=== PATIENT | female | born 1965 | race Caucasian/White ===

== ENCOUNTER 2016-04-17 13:04 | Inpatient (IN) | payer OTHER ==
--- NOTE | ~2016-04-17 | HP ---
History And Physical [id number] [place]. [address] NAME: JODI JAMESON : 69 STATUS : REG REF PAT#: [id number] AGE: 50 ADM/REG DATE : 04/17/16 MR#: [id number] REPORT SERV DATE: 04/18/16 DICTATED BY: FELECIA VARELA DATE: 04/17/16 REPORT STATUS : Draft TRANSCRIBED BY: MODL DATE: 04/17/16 DATE OF ADMISSION: 04/17/2016 POINT OF ENTRY: Direct admission from Short-Stay Unit. PRIMARY ONCOLOGIST: Braulio Rene M.D. CHIEF COMPLAINT: Hypoxemia, shortness of breath. HISTORY OF PRESENT ILLNESS: Ms Jameson is a 50-year-old female with an unfortunate history of metastatic breast cancer with associated malignant pleural effusion status post left-sided PleurX catheter placement, who underwent PleurX catheter investigation and ultimately removal today as an outpatient. Unfortunately postprocedurally she was noted to be hypoxemic and short of breath and the Hospitalist Service was asked to admit the patient. The patient has a history of malignant pleural effusion, has received multiple left-sided thoracentesis, she approximate 6. She ultimately ended up having a PleurX catheter placed about two weeks ago and for some time was getting a 400 to 600 mL of fluid removal at a time. However, home health has noted that it has stopped draining and therefore, she underwent PleurX catheter investigation today to see if it was either malpositioned or clogged. As best I can see from the records from [facility] as well as discussion with nursing and Dr. Murphy of Oncology it appears that the PleurX catheter was in good position, but that the remaining pleural effusions were small in nature and therefore decision was made to remove the PleurX catheter. Postprocedure, she was noted to be hypoxemic on room air with saturations as low as the mid 80s and there she was placed on 2 L by nasal cannula and admitted to the Hospitalist Service. The patient states that at home she has been in a fair amount of pain and has been unable to use her inhaler because she is unable to take large deep breaths. She also has some coughing as well as sensation of chest congestion, but has been unable to clear up any sputum as she again is unable secondary to pain to produce any forceful coughs. The patient does state that she at home has noted progressive worsening shortness of breath, as well as dyspnea on exertion, and even now at the time of my examination states that talking even while on oxygen has started to leave her winded. They also state she has had some low-grade fevers at home as well as recently diagnosed with an infection of the PleurX catheter with some erythema and some drainage around the insertion site and was recently placed on a course of oral ciprofloxacin by Dr. Rene's office. She also does endorse some wheezing from her history of asthma, but again has been unable to adequately use her inhaler recently secondary to pain. Initial evaluation shows multiple chest x-rays from Interventional Radiology Suite that show bilateral pleural effusions as well as diffuse interstitial thickening concerning for edema versus possible metastatic spread. She did have a CT of the chest that was performed that showed good position of the catheter with bilateral small to moderate pleural effusions as well as a small area of loculated pleural effusion on the left side as well as multiple areas of segmental and subsegmental atelectasis as well as diffuse coarse interstitial History And Physical [address] [address] NAME: JODI JAMESON : 69 STATUS : REG REF PAT#: [id number] AGE: 50 ADM/REG DATE : 04/17/16 MR#: [id number] REPORT SERV DATE: 04/18/16 DICTATED BY: FELECIA VARELA DATE: 04/17/16 REPORT STATUS : Draft TRANSCRIBED BY: MODMomo DATE: 04/17/16 markings consistent for pneumonia versus metastatic spread. REVIEW OF SYSTEMS: Comprehensive review of systems otherwise negative unless listed in history of present illness. PREVIOUS MEDICAL HISTORY: 1. Metastatic breast cancer with known metastases to the bone. 2. Malignant pleural effusion status post PleurX catheter insertion, now removal. 3. Gastroesophageal reflux disease. 4. Hpi-vuvrprf-ejbtvybwc diabetes mellitus type 2. 5. Obstructive sleep apnea, on CPAP therapy. 6. Asthma. SURGICAL HISTORY: 1. Bilateral mastectomy. 2. Abdominal hysterectomy and bilateral salpingo-oophorectomy. 3. x2. 4. Breast reconstruction. ALLERGIES: NO KNOWN DRUG ALLERGIES. HOME MEDICATIONS: 1. Cetirizine 10 mg daily. 2. Ciprofloxacin 500 mg b.i.d. 3. Xgeva every four weeks. 4. Pepcid 40 mg q.h.s. 5. Prozac 10 mg daily. 6. Faslodex every 30 days. 7. [place] 5/325 mg one to two tabs q.4 hours p.r.n. 8. Melatonin 5 mg q.h.s. 9. Metformin 500 mg b.i.d. 10.Dulera two puff inhalation daily. 11.OxyContin 10 mg q.h.s. 12.Ibrance 125 mg daily. 13.Protonix 40 mg daily. 14.Simvastatin 10 mg daily. 15.Every weekly allergy injection. SOCIAL HISTORY: She denies any tobacco, alcohol, or illicits. She is a lifelong nonsmoker. FAMILY MEDICAL HISTORY: Mother with history of breast cancer. Extended family members also with history of breast cancer. LABS AND IMAGIN. CT of the chest shows good position of the PleurX catheter in the left pleural space and is surrounded by pleural fluid only a small amount of injected contrast adjacent to History And Physical [address] [address] NAME: JODI JAMESON : 69 STATUS : REG REF PAT#: [id number] AGE: 50 ADM/REG DATE : 04/17/16 MR#: [id number] REPORT SERV DATE: 04/18/16 DICTATED BY: FELECIA VARELA DATE: 04/17/16 REPORT STATUS : Draft TRANSCRIBED BY: MODMomo DATE: 04/17/16 the PleurX catheter at the medial posterior lung pleural space, small to moderate bilateral pleural effusions, small loculated pleural effusion along the left major fissure, subsegmental atelectasis right upper and middle lobe, left upper lobe and multi segmental atelectasis both lower lobes, diffusely coarse interstitial markings suggestive of interstitial spread of malignancy versus interstitial pulmonary edema pattern. 2. Postprocedural chest x-ray per my review does not appear to show any postprocedural pneumothorax. Again does show bilateral pleural effusions as well as coarse interstitial markings throughout. 3. Labs are pending at the time of my dictation. PHYSICAL EXAMINATION: VITAL SIGNS: Temperature is 98.2 degrees Fahrenheit, pulse is 83, respirations 25, saturating 97% on 2 L of cannula, and blood pressure 140/65. GENERAL: The patient is awake and alert, in no acute distress. Resting comfortably in bed. She is a well-developed, well-nourished, female. HEENT: Atraumatic and normocephalic. Moist mucous membranes. Pupils are equal, round, reactive to light and accommodation. Extraocular eye movements are intact. No scleral icterus. NECK: No jugular venous distention. No carotid bruits. CARDIAC: Regular rate and rhythm. No murmurs or gallops. Normal S1, normal S2. LUNGS: She is on oxygen, but in no respiratory distress. Does have decreased breath sounds in the bases, left greater than right. She also has inspiratory crackles bilateral bases, left greater than right, as well as very mild inspiratory wheezes and rales in all lung taylor. ABDOMEN: Soft, nontender, and nondistended. Good bowel sounds. No rebound, guarding, or rigidity. EXTREMITIES: Warm and perfused. No cyanosis, clubbing, or edema. SKIN: Warm and dry. PSYCH: Affect appropriate. NEURO: Alert and oriented x3. Cranial nerves 2 through 12 grossly intact. Speech is normal. Gait not assessed. ASSESSMENT AND PLAN: Ms Jameson is a 50-year-old female with a history of metastatic breast cancer with known history of malignant pleural effusions, who is being admitted to the Hospitalist Service for hypoxemia. PROBLEM LIST: 1. Hypoxemia, likely multifactorial. 2. Segmental and subsegmental atelectasis. 3. Bilateral pleural effusions. 4. Coarse interstitial markings concerning for edema versus metastatic spread. 5. History of asthma. 6. History of metastatic breast cancer. PLAN: 1. Hypoxemia. The patient's hypoxemia is likely multifactorial in etiology. I suspect a History And Physical [address] [address] NAME: JODI JAMESON : 69 STATUS : REG REF PAT#: [id number] AGE: 50 ADM/REG DATE : 04/17/16 MR#: [id number] REPORT SERV DATE: 04/18/16 DICTATED BY: FELECIA VARELA DATE: 04/17/16 REPORT STATUS : Draft TRANSCRIBED BY: DENEEN DATE: 04/17/16 fair contribution from obvious areas of atelectasis secondary to splinting from pain as well as contribution from her small to moderate sized pleural effusions. I am concerned about the coarse interstitial markings concerning for possible pulmonary edema versus metastatic spread. She does not have other evidence of volume overload on examination, but we will check a BNP as well as I will try one time low-dose Lasix. Other contributors may be also from her asthma as well as known history of obstructive sleep apnea. We will place the patient on DuoNebs with EzPAP to address her atelectasis, place the patient on pulmonary toilet with incentive spirometry as well as flutter valve, as well as a one time dose of Lasix as well as address the patient's pain control in an effort to allow her to take deep breaths as much as possible. Should we not able to wean the patient from oxygen we will need to consult Case Management and [facility] in the morning for arrangement of home oxygen. Of note, the patient also does have a history of pneumonitis in the past from everolimus; however, the patient states she is no longer on that. I will defer to Oncology whether they think that this may be also contributing to her hypoxemia. 2. Malignant pleural effusion status post PleurX catheter insertion, now removal. This appears to be small to moderate in size based on imaging. 3. History of metastatic breast cancer. Defer to Oncology. 4. Asthma. We will place the patient on DuoNeb as well as Brovana and Pulmicort as well as address the patient's pain in an effort to get her to utilize the nebulized inhaled treatments. We will hold off on any steroids at this time as I do not appreciate a considerable amount of wheezing. 5. Buf-guatjwm-mzcyfutrp diabetes mellitus type 2. Holding metformin. Place her on a level 1 insulin sliding scale. 6. Deep venous thrombosis prophylaxis. Lovenox subcu. CODE STATUS: The patient wished to be full code. JCB/MODL Felecia Varela MD / [id number] CC: Berto Tuttle M.D.
--- NOTE | ~2016-04-17 | DS ---
Discharge Summary [facility] [address] [place]. [address] NAME: JODI JAMESON : 69 STATUS : DIS Emilia PAT#: [id number] AGE: 50 ADM/REG DATE : 04/17/16 MR#: [id number] REPORT SERV DATE: 04/20/16 DICTATED BY: HOLLIS LEDEZMA DATE: 04/19/16 REPORT STATUS : Draft TRANSCRIBED BY: MODL DATE: 04/19/16 ADMISSION DATE: 04/17/2016 DISCHARGE DATE: 04/19/2016 CONSULTANTS: Dr. Concepción Murphy, medical oncology. DISCHARGE DIAGNOSES: 1. Acute hypoxic respiratory failure. 2. 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 3. Metastatic breast cancer known to involve bone and pleura. 4. Gastroesophageal reflux disease. 5. Obstructive sleep apnea, using bedtime CPAP. 6. History of medication induced diabetes mellitus type 2. 7. History of asthma. 8. Anemia of chronic disease. 9. Mild leukopenia related to chemotherapy. HISTORY: This patient has been fighting breast cancer for nearly 20 years. She recently was found to have malignant pleural effusion, had multiple thoracentesis ended up having a PleurX catheter placed approximately 2 weeks prior to coming into the hospital. Home Health was doing drainage procedure as was the patient and . It got to where there was little or no drainage, so she came to the hospital for evaluation for malpositioning of the tube or removal of it. In the radiology suite on 04/17/2016, the CT scan showed satisfactory appearance of the PleurX catheter in the left pleural space. There was not much pleural fluid in the region around. There was [id number] bilateral pleural effusions, subsegmental atelectasis, right upper and middle lobe, left upper lobe and left lower lobe. There was a diffuse coarse interstitial markings, suggesting either pulmonary spread of malignancy through the interstitium or pulmonary edema. There was also patchy osteoblastic metastatic disease throughout the bony thorax, no lytic destructive lesions, and no pathologic fractures. Enlarged left retrocrural lymph node posterior to the descending thoracic aorta within the posterior mediastinum but stable since 01/22/2016. After the chest tube was removed, the patient was noted to be persistently hypoxic so she was referred to our team for inpatient care. The patient admitted that she has had gradually worsening dyspnea for some time, so it is suspected that she has been gradually developing this inflammatory reaction in the lung. Whether it is a pneumonitis or lymphangitis spread at this time, it is not completely clear. Her procalcitonin here was normal at 0.7. She did not have any elevated white count but she is on chemotherapy, no distinct infiltrates. Prior to the procalcitonin, we did initiate cefepime and vancomycin for the patient just in case it was an infectious process. Dr. Concepción Murphy reviewed the studies, felt it was not likely an acute infectious process. I felt the patient could go home and be on steroids for possible pneumonitis inflammation. She was started on 60 mg daily with plan for followup with Dr. Rene in the office on Wednesday of this week and if no better, then to change to IV chemotherapy. Discharge Summary [address] [address] NAME: JODI JAMESON : 69 STATUS : DIS Emilia PAT#: [id number] AGE: 50 ADM/REG DATE : 04/17/16 MR#: [id number] REPORT SERV DATE: 04/20/16 DICTATED BY: HOLLIS LEDEZMA DATE: 04/19/16 REPORT STATUS : Draft TRANSCRIBED BY: DENEEN DATE: 04/19/16 Prior to discharge room air sat at rest 91% but with walking, it dropped to 81%. With 2 L, it recovered to 95%. So the patient will be on 2 L nasal cannula at home and portable with case management to follow this up. She states in the past when she took some medications, she had diabetes as a side effect. So, we are going to put her on a sliding scale of NovoLog with followup with her PCP, Dr. Ariel Guardado. DISCHARGE MEDICATIONS: Include; Pepcid 40 mg daily, Prozac 10 mg daily, Zyrtec 10 mg daily, Protonix 40 mg daily, Florastor rzwh-grs-kbkrncg b.i.d. for two weeks because of the antibiotic, she has been on recently, Zocor 10 mg every bedtime, OxyContin 10 mg at bedtime which is a chronic medicine, [place] 06/3250 one to two every four hours p.r.n. breakthrough pain, which is a chronic medicine for her, Tylenol 650 q. 6 hours p.r.n. mild pain, metformin 500 mg b.i.d. with supper, melatonin 5 mg at bedtime, prednisone 20 mg 3 tablets every day, NovoLog sliding scale level 2 a.c. t.i.d. Dulera 100/5 two puffs daily. We are asking her oncologist to comment on whether she is to stay on her ibrance 125 mg as well as her Faslodex 125 mg given injectable every 30 days at her oncologist's office, as well as Xgeva 120 mg subcu every four weeks. I spent 41 minutes today with the patient and her and with the nursing staff and talking with Dr. Concepción Murphy. CHIRAG/DENEEN Hollis Ledezma M.D. / [id number] CC: Hollis Ledezma M.D.
[~2016-04-17 13:04] MED LIST: ALLERGY INJECTION; ARIMIDEX1 PO; ATV.5 PO; AUG875 PO; C5 PO; COMP10B PO; COUMADIN6 MG PO; DULERA 100 MCG/13 GM INH; EFFEXXR37 PO; FASLODEX IM; GLUCOPHXR7 PO; GLUCPH PO; IBRANCE125; LORTAB 5 PO; MELATONIN5 M1 PO; NEXIUM40 PO; NORCO1 TA1 PO; OXYCON10 PO; PEPCID40 MG PO; PERCOCET1 TA2 PO; PRILOSEC10 MG PO; PROTONIX PO; PROZ10 PO; ULTRAM ER100 MG PO; XGEVA120 MG/1.7 SC; XODOL1 TA2 PO; ZOCOR10 PO; ZYRTEC ALLGY10 MG PO
[2016-04-17] MEDS ORDERED: CIP5 PO (13:42)
[2016-04-17 23:20] LABS: BASOPHILS 2.3 %; BASOPHILS ABSOLUTE 0.08 10/3/uL (0.0-0.16); EOSINOPHILS 1.4 %; EOSINOPHILS ABSOLUTE 0.05 10/3/uL (0.0-0.53); HEMATOCRIT 32.3 % (36.0-48.0); HEMOGLOBIN 10.9 g/dL (12.0-16.0); IMMATURE GRANULOCYTES 0.6 %; IMMATURE GRANULOCYTES ABSOLUTE 0.02 10/3/uL (0.0-0.11); LYMPHOCYTES 19.4 %; LYMPHOCYTES ABSOLUTE 0.67 10/3/uL (0.67-4.30); MEAN CORPUS HGB CONC 33.7 g/dL (32.0-36.0); MONOCYTES 4.9 %; MONOCYTES ABSOLUTE 0.17 10/3/uL (0.21-1.20); NEUTROPHILS 71.4 %; NEUTROPHILS ABSOLUTE 2.47 10/3/uL (2.02-8.40)
[2016-04-17 23:24] LABS: MANUAL DIFF NO %; MEAN CORPUSCULAR HEMOGLOB 29.2 pg (26.0-34.0); MEAN CORPUSCULAR VOLUME 86.6 fL (80-100); PLATELET COUNT 423 10/3/uL (150-400); RBC DISTRIBUTION WIDTH 20.5 % (12.0-16.0); RED CELL COUNT 3.73 10/6/uL (4.0-5.6); WHITE BLOOD CELLS 3.5 10/3/uL (4.5-10.5)
[2016-04-17 23:33] LABS: A/G RATIO 0.6 (0.7-1.9); ALBUMIN 2.4 G/DL (3.5-5.0); ALKALINE PHOSPHATASE 102 U/L (45-117); BUN (BLOOD UREA NITROGEN) 12 MG/DL (6-23); CALCIUM, SERUM 8.5 MG/DL (8.5-10.4); CHLORIDE, SERUM 104 MMOL/L (96-112); CO2 (CARBON DIOXIDE) 26 MMOL/L (24-34); CREATININE 0.64 MG/DL (0.55-1.02); GFR AFRICAN AMERICAN 122 ML/MIN (>=60); GFR NON AFRICAN AMERICAN 106 ML/MIN (>=60); GLOBULIN 4.1 G/DL (2.5-4.1); POTASSIUM, SERUM 4.1 MMOL/L (3.5-5.3); SGOT(AST) 21 U/L (5-40); SGPT(ALT) 14 U/L (5-65); SODIUM, SERUM 139 MMOL/L (135-148); TOTAL BILIRUBIN 0.3 MG/DL (0-1.2); TOTAL PROTEIN 6.5 G/DL (6.0-8.5); TROPONIN I <0.02 NG/ML (<0.05)
[2016-04-17 23:34] LABS: GLUCOSE, SERUM 107 MG/DL (60-99)
[2016-04-18 11:09] LABS: BASOPHILS 1.7 %; BASOPHILS ABSOLUTE 0.05 10/3/uL (0.0-0.16); EOSINOPHILS ABSOLUTE 0.03 10/3/uL (0.0-0.53); HEMOGLOBIN 10.4 g/dL (12.0-16.0); IMMATURE GRANULOCYTES 0.7 %; IMMATURE GRANULOCYTES ABSOLUTE 0.02 10/3/uL (0.0-0.11); LYMPHOCYTES 22.9 %; LYMPHOCYTES ABSOLUTE 0.67 10/3/uL (0.67-4.30); MANUAL DIFF NO %; MEAN CORPUS HGB CONC 33.5 g/dL (32.0-36.0); MEAN CORPUSCULAR HEMOGLOB 28.8 pg (26.0-34.0); MEAN CORPUSCULAR VOLUME 85.9 fL (80-100); MEAN PLATELET VOLUME 7.8 fL (9.2-13.0); MONOCYTES 5.8 %; MONOCYTES ABSOLUTE 0.17 10/3/uL (0.21-1.20); NEUTROPHILS 67.9 %; NEUTROPHILS ABSOLUTE 1.98 10/3/uL (2.02-8.40); PLATELET COUNT 363 10/3/uL (150-400); RBC DISTRIBUTION WIDTH 20.5 % (12.0-16.0); RED CELL COUNT 3.61 10/6/uL (4.0-5.6); WHITE BLOOD CELLS 2.9 10/3/uL (4.5-10.5)
[2016-04-18 11:22] LABS: BUN (BLOOD UREA NITROGEN) 13 MG/DL (6-23); CALCIUM, SERUM 8.4 MG/DL (8.5-10.4); CHLORIDE, SERUM 103 MMOL/L (96-112); CO2 (CARBON DIOXIDE) 28 MMOL/L (24-34); CREATININE 0.86 MG/DL (0.55-1.02); GFR AFRICAN AMERICAN 93 ML/MIN (>=60); GFR NON AFRICAN AMERICAN 80 ML/MIN (>=60); GLUCOSE, SERUM 123 MG/DL (60-99); POTASSIUM, SERUM 3.5 MMOL/L (3.5-5.3); SODIUM, SERUM 140 MMOL/L (135-148)
[2016-04-18 11:47] LABS: PROCALCITONIN 0.07 ng/mL (<0.5)
[2016-04-18 13:38] LABS: ALLENS TEST Pos; BE (BASE EXCESS) 1.8 MEQ/L (0 +/- 2.5); CARBOXYHEMOGLOBIN 0.7 % (0-3); DEVICE NC; HCO3 (ACTUAL BICARBONATE) 26.4 MEQ/L (23-27); HEMOBLOGIN CONTENT 13.8 G/DL (12-16); INSTRUMENT SERIAL # 8083; METHEMOGLOBIN 0.1 % (0-3); O2 CONTENT 18.8 VOL% (18-24); PCO2 (CO2 TENSION) 42 MMHG (35-45); PO2 (O2 TENSION) 96 MMHG (79-93); SAMPLE Arterial; pH 7.42 (7.37-7.43)
[2016-04-19 04:09] LABS: BUN (BLOOD UREA NITROGEN) 10 MG/DL (6-23); CALCIUM, SERUM 7.8 MG/DL (8.5-10.4); CHLORIDE, SERUM 106 MMOL/L (96-112); CO2 (CARBON DIOXIDE) 26 MMOL/L (24-34); GFR AFRICAN AMERICAN 125 ML/MIN (>=60); GFR NON AFRICAN AMERICAN 108 ML/MIN (>=60); GLUCOSE, SERUM 100 MG/DL (60-99); POTASSIUM, SERUM 4.1 MMOL/L (3.5-5.3); SODIUM, SERUM 140 MMOL/L (135-148)
[2016-04-19 04:20] LABS: BASOPHILS 1.6 %; BASOPHILS ABSOLUTE 0.05 10/3/uL (0.0-0.16); EOSINOPHILS ABSOLUTE 0.06 10/3/uL (0.0-0.53); HEMATOCRIT 28.6 % (36.0-48.0); HEMOGLOBIN 9.3 g/dL (12.0-16.0); IMMATURE GRANULOCYTES 0.7 %; IMMATURE GRANULOCYTES ABSOLUTE 0.02 10/3/uL (0.0-0.11); LYMPHOCYTES 23.4 %; LYMPHOCYTES ABSOLUTE 0.71 10/3/uL (0.67-4.30); MANUAL DIFF NO %; MEAN CORPUS HGB CONC 32.5 g/dL (32.0-36.0); MEAN CORPUSCULAR HEMOGLOB 28.2 pg (26.0-34.0); MEAN CORPUSCULAR VOLUME 86.7 fL (80-100); MEAN PLATELET VOLUME 8.1 fL (9.2-13.0); MONOCYTES 3.9 %; MONOCYTES ABSOLUTE 0.12 10/3/uL (0.21-1.20); NEUTROPHILS 68.4 %; NEUTROPHILS ABSOLUTE 2.08 10/3/uL (2.02-8.40); PLATELET COUNT 375 10/3/uL (150-400); RBC DISTRIBUTION WIDTH 20.7 % (12.0-16.0)
[2016-04-19] MEDS ORDERED: P20 PO (17:08)
[2016-04-19] MEDS ORDERED: NOVOPEN SC (17:09)
[2016-05-10] MEDS ORDERED: ZYRTEC ALLGY10 MG PO (20:58)
[2016-05-10] MEDS ORDERED: ASAB PO (20:59)
[2016-05-10] MEDS ORDERED: PEP20 PO (21:00)
[2016-05-10] MEDS ORDERED: XGEVA120 MG/1.7 SC (21:01)
[2016-05-10] MEDS ORDERED: PROZ10 PO (21:02)
[2016-05-10] MEDS ORDERED: NORCO1 TA1 PO (21:02)
[2016-05-10] MEDS ORDERED: DULERA 100 MCG/13 GM INH (21:03)
[2016-05-10] MEDS ORDERED: MELATONIN5 M1 PO (21:03)
[2016-05-10] MEDS ORDERED: CHEMOTHERAPY IV (21:03)
[2016-05-10] MEDS ORDERED: PROTONIX PO (21:04)
[2016-05-10] MEDS ORDERED: OXYCON10 PO (21:04)
[2016-05-10] MEDS ORDERED: PREDNISONE TAPER PO (21:05)
[2016-05-10] MEDS ORDERED: ZOCOR10 PO (21:05)
[2016-06-03] MEDS ORDERED: CHEMOTHERAPY IV (14:46)
[2016-06-03] MEDS ORDERED: GEMZAR IV (14:48)
[2016-06-05] MEDS ORDERED: XGEVA120 MG/1.7 SC (13:00)
[2016-06-05] MEDS ORDERED: L20 PO (13:01)
[2016-06-05] MEDS ORDERED: KLOR-CON 1010 MEQ PO (13:02)
[2016-06-18] MEDS ORDERED: 5FU IV (14:24)
[2016-06-18] MEDS ORDERED: [UNRECOGNIZED DRUG - OTHER] IV (14:25)
[2016-06-18] MEDS ORDERED: XELODA PO ×2 (14:38→14:39)
[2016-08-11] MEDS ORDERED: XELODA PO (16:06)
[2016-08-11] MEDS ORDERED: PROTONIX PO (16:11)
== END 2016-04-19 21:36 | disposition home or self-care (01) | DRG 180 ==
LOC: IMGHOLD 13:04 → RADHOLD 13:12 → SSU1 17:56 → 4SO 04-18 10:58
PROVIDERS: Hospitalist; Internal Medicine
PROC: 0BPQ30Z Removal of Drainage Device from Pleura, Percutaneous Approach (ICD-10-PCS; principal; 2016-04-17)
DX: C78.2 Secondary malignant neoplasm of pleura (principal); J96.01 Acute respiratory failure with hypoxia; J18.9 Pneumonia, unspecified organism; C77.1 Secondary and unspecified malignant neoplasm of intrathoracic lymph nodes; C79.51 Secondary malignant neoplasm of bone; Z99.81 Dependence on supplemental oxygen; D63.0 Anemia in neoplastic disease; E11.9 Type 2 diabetes mellitus without complications; J98.11 Atelectasis; D70.1 Agranulocytosis secondary to cancer chemotherapy; Z85.3 Personal history of malignant neoplasm of breast; J45.909 Unspecified asthma, uncomplicated; T45.1X5A Adverse effect of antineoplastic and immunosuppressive drugs, initial encounter; G47.33 Obstructive sleep apnea (adult) (pediatric); K21.9 Gastro-esophageal reflux disease without esophagitis; Z79.899 Other long term (current) drug therapy
CPT/HCPCS: 32552; 36600; 71010; 71020; 71250; 80048; 80053; 82805; 82962; 83880; 84145; 84484; 85025; 94640; A9270-GY; J0692; J1170; J1940; J2250; J3010; J3370; Q9967

== ENCOUNTER 2016-05-10 21:29 | Inpatient (IN) | payer OTHER ==
--- NOTE | ~2016-05-10 | HP ---
History And Physical [address] [place]. [address] NAME: JODI JAMESON : 69 STATUS : ADM IN [facility]#: [id number] AGE: 50 ADM/REG DATE : 05/10/16 MR#: [id number] REPORT SERV DATE: 05/11/16 DICTATED BY: MANUEL GRIMALDO DATE: 05/11/16 REPORT STATUS : Draft TRANSCRIBED BY: MODL DATE: 05/11/16 DATE OF ADMISSION: 05/10/2016 CHIEF COMPLAINT: A 50-year-old female presenting with leukopenia after chemotherapy and now with high fevers and shortness of breath. HISTORY OF PRESENTING ILLNESS: The patient's history was obtained through careful interview with the patient and , coupled with review of [facility] and [facility] medical records. The patient has longstanding breast cancer. She was first diagnosed in 1994, but then had her first recurrence in 2010 and then further metastatic spread in 2014. Now, she is under further chemotherapy under the care Dr. 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 She just started new chemotherapy regimen about two weeks ago. She has felt weak and ill since that time and she describes low-grade temperature over the last three or four days. But then today, she developed increasing cough productive of a clear sputum, diaphoresis, chills, increasing shortness of breath characterized by dyspnea on exertion. She describes chest discomfort just starting on the morning of admission, right sided, described as under her breast, a sharp, pleuritic-like discomfort exacerbated by coughing and breathing, 5 to 7/10 severity. She describes nausea, but no vomiting. No abdominal pain. No diarrhea. She claims diabetes is under good control. She has had no weight loss recently. Within the last week, she developed swelling in her right upper extremity and was diagnosed with a right superficial vein thrombosis and started on aspirin. She thinks that it has slightly worsened over that period of time, but not to a severe degree. REVIEW OF SYSTEMS: Otherwise, a 14-point review of systems was obtained and was negative. PAST MEDICAL HISTORY: 1. Metastatic breast cancer first diagnosed in 1994 with recurrences in 2010 and 2014, followed by Dr. Rene. 2. Diabetes. 3. Asthma. 4. Obstructive sleep apnea, intolerant of CPAP, now on nasal cannula oxygen. 5. Malignant pleural effusion with history of Pleur-X catheter. 6. Chronic interstitial lung disease, possible radiation injury to the lung. 7. Gastroesophageal reflux disorder. 8. ESBL E coli urinary tract infection. 9. DVT and pulmonary embolus in 2010, but no longer on anticoagulation. 10.Cellulitis and mastitis of the breast. History And Physical [address] [place]. [address] NAME: JODI JAMESON : 69 STATUS : ADM IN [facility]#: [id number] AGE: 50 ADM/REG DATE : 05/10/16 MR#: [id number] REPORT SERV DATE: 05/11/16 DICTATED BY: MANUEL GRIMALDO DATE: 05/11/16 REPORT STATUS : Draft TRANSCRIBED BY: DENEEN DATE: 05/11/16 PAST SURGICAL HISTORY: 1. Bilateral mastectomy with reconstruction. 2. Hysterectomy with oophorectomy. 3. Pleur-X catheter that has since been removed. 4. x2. 5. Septoplasty. ALLERGIES: NO KNOWN DRUG ALLERGIES. SOCIAL HISTORY: No tobacco abuse. No alcohol abuse. Lives in [place], [place]. Is . Has two children ages 13 and 20. FAMILY HISTORY: Mother with breast cancer. There are other family members with ovarian cancer and breast cancer on her mother's side of the family. CURRENT MEDICATIONS: Include aspirin 81 mg p.o. daily, Zyrtec 10 mg p.o. daily, Xgeva 120 mg subcutaneous every month, Pepcid 40 mg p.o. daily, Prozac 10 mg p.o. daily, hydrocodone p.r.n., melatonin 5 mg p.o. q.h.s., Dulera two puffs inhaled daily, OxyContin 10 mg p.o. daily, Protonix 40 mg daily, Zocor 10 mg p.o. daily, prednisone. PHYSICAL EXAMINATION: VITAL SIGNS: Temperature 101.8, pulse 154, blood pressure 116/49, respiratory rate 24, O2 saturation 92% on 2 L nasal cannula. GENERAL: A chronically ill-appearing female. She does not appear in any particular acute distress at this time though. HEENT: Pupils equal, round, and reactive to light. No conjunctival pallor. No scleral icterus. Nares are patent. Oropharynx is clear of obstruction. Dry mucous membranes. NECK: Trachea midline. No thyromegaly. LYMPH: No cervical lymphadenopathy. No supraclavicular lymphadenopathy. No inguinal lymphadenopathy. RESPIRATORY: The patient has scattered rhonchi on examination that predominate exam. I do not personally appreciate any focal egophony. The patient does have diminished breath sounds at the left base of lung with dullness to percussion to suggest what appears to be a moderate to large size pleural effusion on that side. The patient has no active wheezes and she has a labored respiratory effort. CARDIOVASCULAR: Tachycardic. Regular rhythm. No murmurs, rubs, or gallops. The patient has chronic-appearing lower extremity edema symmetrically. ABDOMEN: Soft, nontender, nondistended. Normal bowel sounds auscultated throughout. No organomegaly. DERMATOLOGICAL: Diaphoretic, warm. EXTREMITIES: No pallor. No cyanosis. PSYCHIATRIC: Normal affect. Good mood. Alert and oriented x3. LABORATORY DATA: White blood cell count 1.0 with 800 neutrophil count, hemoglobin 10, hematocrit 30, platelets 45. Sodium 136, potassium 4.3, chloride 102, bicarb 25, BUN 22, creatinine 0.77, glucose 166, albumin 2.6. Lactic acid 1.3. INR 1.1. Liver enzymes within History And Physical [address] [address] NAME: JODI JAMESON : 69 STATUS : ADM IN [facility]#: [id number] AGE: 50 ADM/REG DATE : 05/10/16 MR#: [id number] REPORT SERV DATE: 05/11/16 DICTATED BY: MANUEL GRIMALDO DATE: 05/11/16 REPORT STATUS : Draft TRANSCRIBED BY: DENEEN DATE: 05/11/16 normal limits. STUDIES: 1. CT angiogram of the chest shows no pulmonary embolism. There is a loculated left pleural effusion that appears stable. Chronic interstitial lung disease. Possible radiation pneumonitis or other chronic disease process. Possible right-sided pneumonia is also noted. 2. EKG by my own evaluation shows sinus tachycardia. ASSESSMENT AND PLAN: 1. Leukopenia and pancytopenia with fever. The neutrophil count is 800, very borderline with a white blood cell count of 1.0. Check blood cultures. Place on IV cefepime for now. 2. Sepsis with fever of 101.8. Tachycardia. Tachypnea. White blood cell count of 1.0. Check blood cultures. Place on IV cefepime and IV vancomycin for now. 3. Metastatic breast cancer. Consult Dr. Rene, oncologist. 4. Hypoxic respiratory failure. No pulmonary embolism. Multiple pulmonary issues including radiation, interstitial fibrosis, pleural effusion, and likely pneumonia. KPL/MODL Manuel Grimaldo M.D. / [id number] CC: Nory Dwyer M.D. Bertrand Marquess Anz III, M.D.
--- NOTE | ~2016-05-10 | DS ---
Discharge Summary [address] [place]. [address] NAME: JODI JAMESON : 69 STATUS : DIS IN PAT#: [id number] AGE: 50 ADM/REG DATE : 05/10/16 MR#: [id number] REPORT SERV DATE: 05/14/16 DICTATED BY: DATE: REPORT STATUS : Draft TRANSCRIBED BY: MODL DATE: 05/14/16 ADMISSION DATE: 05/10/2016 DISCHARGE DATE: 05/14/2016 DISCHARGE DIAGNOSES: 1. Bilateral pneumonia. 2. Chronic hypoxic respiratory failure. 3. Pulmonary edema. 4. Chronic constipation. 5. Metastatic breast cancer. 6. Pancytopenia. CONSULTATIONS: Dr. Rene, [facility]. PERTINENT TESTS AND PROCEDURES: 1. Blood cultures x2 sites obtained 05/10/2016, preliminary result, no growth at two days. 2. Strep pneumo antigen urine result negative. 3. Legionella antigen urine nondetected. 4. Urinalysis, 05/10/2016, result negative. 5. Chest x-ray 05/10/2016, impression: Image compared to 04/19/2016 study. Recurrent failure with bilateral moderate-sized effusions. 6. CTA of chest 05/10/2016, impression:. a. No CT evidence of pulmonary embolus. b. Multisegment probable atelectasis, both lung bases versus possibility of bibasilar pneumonia depending on clinical setting. Slightly less extensive airspace consolidation in left lower lobes compared to 04/17/2016 CT of the chest. c. Underlying partially loculated small to moderate bilateral pleural effusion. d. Diffusely coarsened interstitial markings and ground-glass opacities through both lung taylor which may represent interstitial spread of malignancy versus less likely pulmonary edema/CHF pattern. e. Stable changes of bilateral mastectomy, axillary lymph node dissection and breast reconstruction. No recurrent chest wall soft tissue mass. f. Extensive osteoblastic metastatic disease scattered throughout the thoracic spine and sternum. 7. Chest x-ray, 05/11/2016, impression: Increasing pulmonary venous hypertension with severe pulmonary edema. Bilateral effusions. 8. Chest x-ray, 05/12/2016, pulmonary vascular congestion and edema slightly improved. 9. Echocardiogram, 05/12/2016, conclusions: Normal left ventricular size and systolic function. Estimated ejection fraction 55%. No regional wall motion abnormalities identified. Mild diastolic dysfunction. Normal right ventricular size and systolic function. No significant valve disease. No evidence of apical thrombus with the use of intravenous contrast. CHIEF COMPLAINT UPON ADMISSION: High fevers and shortness of breath. Discharge Summary [address] [address] NAME: JODI JAMESON : 69 STATUS : DIS IN PAT#: [id number] AGE: 50 ADM/REG DATE : 05/10/16 MR#: [id number] REPORT SERV DATE: 05/14/16 DICTATED BY: DATE: REPORT STATUS : Draft TRANSCRIBED BY: MODL DATE: 05/14/16 HOSPITAL COURSE: Please refer to history and physical provided by Dr. Андрей Ashraf on 05/11/2016 for complete details of the patient's initial presentation upon admission and health history. Briefly, the patient is a 50-year-old female, who is under the outpatient care of Dr. Rene at [facility] for management and treatment of metastatic breast cancer. The diagnosis was first confirmed in 1994 with first recurrence in 2010 and then further metastatic spread in 2014. The patient is now under chemotherapy per Dr. Rene at [facility]. New chemotherapy regimen initiated approximately two weeks ago, and the patient has felt weak and ill since that time. The patient reported to the emergency department on 05/11/2016 with complaints of increasing productive cough, diaphoresis, chills, and increasing shortness of breath to include dyspnea on exertion. The patient was admitted for further evaluation and treatment. 1. Bilateral pneumonia with sepsis present upon admission since resolved. Upon admission, the patient presented with sepsis confirmed with fever of 100.8, tachycardia, tachypnea, and white blood cell count of 1.0. Blood cultures were obtained and the patient was initially placed on IV cefepime and vancomycin. Vancomycin was discontinued on 05/11/2016 and cefepime was continued until today. The patient will discharge to home on Levaquin 750 mg tablet p.o. every 24 hours times an additional seven day therapy in the setting of an immune compromised patient. Blood cultures obtained were negative. 2. Chronic hypoxic respiratory failure. The patient is home O2 dependent. However, upon initial presentation to the emergency room shortness of breath was increased from baseline. This was secondary to pneumonia. The patient has responded well to antibiotic therapy and chronic shortness of breath is now at baseline. The patient will continue home oxygen. 3. Pulmonary edema. The patient's chest x-rays were concerning for pulmonary edema/CHF versus possible metastatic spread. Echocardiogram obtained on 05/13/2016 was unremarkable reporting an ejection fraction of 55%. The patient's most recent chest x- ray showed mild improvement in pulmonary edema. No additional interventions were indicated at this time. 4. Chronic constipation. The patient had a small bowel movement today. The patient was educated regarding importance of maintaining daily bowel regimen to prevent constipation while taking opioid pain medications. 5. Metastatic breast cancer. Initial diagnosis in 1994 with recurrence in 2010 and confirmation of metastatic spread in 2014. The patient recently restarted chemotherapy under the direction of Dr. Rene at [facility]. The patient will continue to follow up as outpatient for further treatment. 6. Pancytopenia. This is secondary to chemotherapy. When the patient presented to the emergency department, her white blood count was reported to be 1.0. White blood count has continued to improve and is 7.1 on day of discharge. Hemoglobin and hematocrit have remained fairly stable and are 8.6 and 25.7 today. The patient's platelets were 45 on the day of admission and have slowly trended down to 21. Oncology is aware of decrease and signed off per patient to go home today with outpatient lab followup in their office tomorrow. Discharge Summary [address] [address] NAME: JODI JAMESON : 69 STATUS : DIS IN PAT#: [id number] AGE: 50 ADM/REG DATE : 05/10/16 MR#: [id number] REPORT SERV DATE: 05/14/16 DICTATED BY: DATE: REPORT STATUS : Draft TRANSCRIBED BY: MODMomo DATE: 05/14/16 DISCHARGE CONDITION: At the time of discharge, the patient is hemodynamically stable. DIET: Regular diet as tolerated. DISCHARGE MEDICATIONS: 1. Aspirin 81 mg p.o. daily. 2. Docusate sodium 100 mg tablet p.o. twice daily as needed. 3. Pepcid 20 mg tablet, take 40 mg p.o. at bedtime. 4. Prozac 10 mg tablet p.o. daily. 5. Zyrtec 10 mg tablet p.o. at bedtime. 6. Protonix 40 mg tablet p.o. daily. 7. MiraLAX 17 g p.o. daily at bedtime. 8. Zocor 10 mg tablet p.o. at bedtime. 9. OxyContin 10 mg CR tablet p.o. at bedtime. 10.Haslet 5 mg/325 mg tablet, take one to two tabs p.o. every four hours as needed. Hold for sedation. 11.Dulera 100 mcg per 5 mcg inhaler two puffs inhaled daily. 12.Tylenol 325 mg tab, take 650 mg p.o. every four hours as needed. 13.Melatonin 5 mg tablet p.o. at bedtime as needed. 14.Zofran 4 mg tablet, take one to two tablets p.o. every six hours as needed for nausea. 15.Xgeva. To be restarted per Oncology. 16.Chemotherapy. To be restarted per Oncology. 17.Senokot two tablets p.o. at night as needed for constipation. DISCHARGE INSTRUCTIONS: 1. Follow up with [facility], 05/15/2016, for outpatient labs. 2. Follow up with Dr. Rene at [facility] on 05/20/2016 at 9:15 a.m. The patient was instructed to return to the emergency department for any acute onset of fever of 100.4 degrees Fahrenheit or higher lasting more than one hour, intractable rigors, chills, sweats, nausea, vomiting, increased dyspnea from baseline, chest pain, or any other health concerns that are deviations from her baseline status at the time of this discharge. PRIMARY ONCOLOGIST: Dr. Rene, [facility]. JWH/JANINEL ber Edouard NP-C / [id number] CC: MD Ariel Morelos II, M.D.
[2016-05-10 20:58] LABS: BASOPHILS 0 %; EOSINOPHILS 0 %; HEMATOCRIT 30.3 % (36.0-48.0); HEMOGLOBIN 10.1 g/dL (12.0-16.0); LYMPHOCYTES 18.4 %; LYMPHOCYTES ABSOLUTE 0.19 10/3/uL (0.67-4.30); MEAN CORPUS HGB CONC 33.3 g/dL (32.0-36.0); MEAN CORPUSCULAR HEMOGLOB 29.7 pg (26.0-34.0); MEAN CORPUSCULAR VOLUME 89.1 fL (80-100); MEAN PLATELET VOLUME 9.3 fL (9.2-13.0); MONOCYTES ABSOLUTE 0.01 10/3/uL (0.21-1.20); NEUTROPHILS 80.6 %; NEUTROPHILS ABSOLUTE 0.83 10/3/uL (2.02-8.40); RBC DISTRIBUTION WIDTH 18.3 % (12.0-16.0)
[2016-05-10 21:05] LABS: PLATELET COUNT 45 10/3/uL (150-400)
[2016-05-10 21:06] LABS: ER CBC TAT 0 Hrs 16 Mins; MANUAL DIFF NO %
[2016-05-10 21:08] LABS: INTERNATIONAL NORMAL RATI 1.1 UNITS (-); PARTIAL THROMBO TIME 27.5 SEC (22.5-37.2); PROTIME (NOT ORD) 13.9 SEC (12.0-14.5)
[2016-05-10 21:17] LABS: A/G RATIO 0.7 (0.7-1.9); ALBUMIN 2.6 G/DL (3.5-5.0); CALCIUM, SERUM 8.3 MG/DL (8.5-10.4); CHLORIDE, SERUM 102 MMOL/L (96-112); CREATININE 0.77 MG/DL (0.55-1.02); GFR AFRICAN AMERICAN 106 ML/MIN (>=60); GFR NON AFRICAN AMERICAN 91 ML/MIN (>=60); POTASSIUM, SERUM 4.3 MMOL/L (3.5-5.3); SGOT(AST) 41 U/L (5-40); SGPT(ALT) 52 U/L (5-65); SODIUM, SERUM 136 MMOL/L (135-148); TOTAL PROTEIN 6.6 G/DL (6.0-8.5)
[2016-05-10 21:19] LABS: ALKALINE PHOSPHATASE 104 U/L (45-117); BUN (BLOOD UREA NITROGEN) 22 MG/DL (6-23); CO2 (CARBON DIOXIDE) 25 MMOL/L (24-34); GLUCOSE, SERUM 166 MG/DL (60-99)
[2016-05-10 21:19] LABS: LACTATE 1.3 MMOL/L (0.3-2.4)
[2016-05-10 21:25] LABS: ANISOCYTOSIS 1+ (5-10/OIF) (0-5/OIF); BAND NEUTROPHILS 10 %; ER DIFF TAT 0 Hrs 35 Mins; LYMPHOCYTES 21 %; LYMPHOCYTES ABSOLUTE (CALC) 0.21 10/3/uL (0.67-4.30); MONOCYTES 3 %; MONOCYTES ABSOLUTE (CALC) 0.03 10/3/uL (0.21-1.20); NEUTROPHILS ABSOLUTE (CALC) 0.76 10/3/uL (2.02-8.40); SEGMENTED NEUTROPHIL (0) 66 %; TOTAL NUCLEATED CELLS 100
[~2016-05-10 21:29] MED LIST changes: +ASAB PO; +CHEMOTHERAPY IV; +CIP5 PO; +NOVOPEN SC; +P20 PO; +PEP20 PO; +PREDNISONE TAPER PO
[2016-05-11 01:21] LABS: ASCORBIC ACID (UR NOT ORDER) NEG (NEG); BILIRUBIN, URINE NEGATIVE (NEG); ER URINALYSIS TAT 0 Hrs 00 Mins; KETONE, URINE NEGATIVE (NEG); LEUKOCYTE ESTERASE(NOT OR NEG (NEG); NITRITE (URINE) NEG (NEG); WBC (NOT ORDERED) (RFLEX) 2 (0-5)
[2016-05-11 07:21] LABS: HEMATOCRIT 25.6 % (36.0-48.0); HEMOGLOBIN 8.6 g/dL (12.0-16.0); MEAN CORPUS HGB CONC 33.6 g/dL (32.0-36.0); MEAN CORPUSCULAR VOLUME 89.2 fL (80-100); MEAN PLATELET VOLUME 10.1 fL (9.2-13.0); RBC DISTRIBUTION WIDTH 18.2 % (12.0-16.0); RED CELL COUNT 2.87 10/6/uL (4.0-5.6); WHITE BLOOD CELLS 2.4 10/3/uL (4.5-10.5)
[2016-05-11 07:22] LABS: MANUAL DIFF YES %; PLATELET COUNT 42 10/3/uL (150-400)
[2016-05-11 07:30] LABS: INTERNATIONAL NORMAL RATI 1.1 UNITS (-); PARTIAL THROMBO TIME 28.2 SEC (22.5-37.2)
[2016-05-11 07:45] LABS: A/G RATIO 0.6 (0.7-1.9); ALBUMIN 2.1 G/DL (3.5-5.0); ALKALINE PHOSPHATASE 96 U/L (45-117); CALCIUM, SERUM 7.5 MG/DL (8.5-10.4); CHLORIDE, SERUM 105 MMOL/L (96-112); CO2 (CARBON DIOXIDE) 25 MMOL/L (24-34); CREATININE 0.57 MG/DL (0.55-1.02); GFR AFRICAN AMERICAN 127 ML/MIN (>=60); GFR NON AFRICAN AMERICAN 110 ML/MIN (>=60); GLOBULIN 3.7 G/DL (2.5-4.1); POTASSIUM, SERUM 3.9 MMOL/L (3.5-5.3); SGOT(AST) 26 U/L (5-40); SGPT(ALT) 42 U/L (5-65); SODIUM, SERUM 139 MMOL/L (135-148); TOTAL BILIRUBIN 0.6 MG/DL (0-1.2); TOTAL PROTEIN 5.8 G/DL (6.0-8.5); TROPONIN I <0.02 NG/ML (<0.05)
[2016-05-11 07:46] LABS: BUN (BLOOD UREA NITROGEN) 16 MG/DL (6-23); GLUCOSE, SERUM 106 MG/DL (60-99)
[2016-05-11 07:50] LABS: BAND NEUTROPHILS 27 %; ELLIPTOCYTES 1+ (3-10/OIF) (0-2/OIF); IMMATURE GRANS ABSOLUTE (CALC) 0.05 10/3/uL (0.0-0.11); LYMPHOCYTES 22 %; LYMPHOCYTES ABSOLUTE (CALC) 0.53 10/3/uL (0.67-4.30); METAMYELOCYTES 2 %; MONOCYTES 5 %; MONOCYTES ABSOLUTE (CALC) 0.12 10/3/uL (0.21-1.20); PLATELET ESTIMATE DEC (ADEQUATE); SEGMENTED NEUTROPHIL (0) 44 %; TEARDROP SHAPED RBCS OCC (0-2/OIF); TOTAL NUCLEATED CELLS 100
[2016-05-11 08:05] LABS: PROCALCITONIN 0.56 ng/mL (<0.5)
[2016-05-12 03:37] LABS: HEMATOCRIT 25.6 % (36.0-48.0); HEMOGLOBIN 8.6 g/dL (12.0-16.0); MEAN CORPUS HGB CONC 33.6 g/dL (32.0-36.0); MEAN CORPUSCULAR VOLUME 89.2 fL (80-100); MEAN PLATELET VOLUME 9.6 fL (9.2-13.0); RED CELL COUNT 2.87 10/6/uL (4.0-5.6)
[2016-05-12 03:38] LABS: MANUAL DIFF YES %; PLATELET COUNT 34 10/3/uL (150-400); WHITE BLOOD CELLS 5.7 10/3/uL (4.5-10.5)
[2016-05-12 03:52] LABS: PHOSPHORUS, SERUM 2.4 MG/DL (2.5-4.5)
[2016-05-12 04:41] LABS: ANISOCYTOSIS 1+ (5-10/OIF) (0-5/OIF); BAND NEUTROPHILS 36 %; EOSINOPHILS 1 %; EOSINOPHILS ABSOLUTE (CALC) 0.06 10/3/uL (0.0-0.53); LYMPHOCYTES 12 %; LYMPHOCYTES ABSOLUTE (CALC) 0.68 10/3/uL (0.67-4.30); MONOCYTES 4 %; MONOCYTES ABSOLUTE (CALC) 0.23 10/3/uL (0.21-1.20); NEUTROPHILS ABSOLUTE (CALC) 4.73 10/3/uL (2.02-8.40); POLYCHROMASIA 1+ (2-5/OIF) (0-1/OIF); SEGMENTED NEUTROPHIL (0) 47 %; TOTAL NUCLEATED CELLS 100; TOXIC GRANULATION 2+; VACUOLATED NEUTROPHILES 2+
[2016-05-13 05:09] LABS: HEMATOCRIT 25.5 % (36.0-48.0); HEMOGLOBIN 8.5 g/dL (12.0-16.0); MEAN CORPUS HGB CONC 33.3 g/dL (32.0-36.0); MEAN CORPUSCULAR HEMOGLOB 29.8 pg (26.0-34.0); MEAN CORPUSCULAR VOLUME 89.5 fL (80-100); MEAN PLATELET VOLUME 9.4 fL (9.2-13.0); NUCLEATED RED BLOOD CELLS 0.7 /100WBC (0-0); RBC DISTRIBUTION WIDTH 17.7 % (12.0-16.0); RED CELL COUNT 2.85 10/6/uL (4.0-5.6); WHITE BLOOD CELLS 6.7 10/3/uL (4.5-10.5)
[2016-05-13 05:11] LABS: MANUAL DIFF YES %; PLATELET COUNT 24 10/3/uL (150-400)
[2016-05-13 05:28] LABS: CALCIUM, SERUM 7.7 MG/DL (8.5-10.4); CHLORIDE, SERUM 107 MMOL/L (96-112); CO2 (CARBON DIOXIDE) 27 MMOL/L (24-34); CREATININE 0.58 MG/DL (0.55-1.02); GFR AFRICAN AMERICAN 126 ML/MIN (>=60); GFR NON AFRICAN AMERICAN 109 ML/MIN (>=60); GLUCOSE, SERUM 105 MG/DL (60-99); POTASSIUM, SERUM 4.1 MMOL/L (3.5-5.3); SODIUM, SERUM 141 MMOL/L (135-148)
[2016-05-13 05:29] LABS: BUN (BLOOD UREA NITROGEN) 10 MG/DL (6-23)
[2016-05-13 06:18] LABS: ATYPICAL LYMPH OCC (0-2%) (0-5%); BAND NEUTROPHILS 14 %; IMMATURE GRANS ABSOLUTE (CALC) 0.07 10/3/uL (0.0-0.11); LYMPHOCYTES 13 %; LYMPHOCYTES ABSOLUTE (CALC) 0.87 10/3/uL (0.67-4.30); METAMYELOCYTES 1 %; MONOCYTES 5 %; MONOCYTES ABSOLUTE (CALC) 0.34 10/3/uL (0.21-1.20); NEUTROPHILS ABSOLUTE (CALC) 5.43 10/3/uL (2.02-8.40); PLATELET ESTIMATE DEC (ADEQUATE); SEGMENTED NEUTROPHIL (0) 67 %; TOTAL NUCLEATED CELLS 100
[2016-05-13 06:19] LABS: ANISOCYTOSIS 1+ (5-10/OIF) (0-5/OIF)
[2016-05-14 05:39] LABS: HEMATOCRIT 25.7 % (36.0-48.0); HEMOGLOBIN 8.6 g/dL (12.0-16.0); MEAN CORPUS HGB CONC 33.5 g/dL (32.0-36.0); MEAN CORPUSCULAR HEMOGLOB 30.3 pg (26.0-34.0); MEAN CORPUSCULAR VOLUME 90.5 fL (80-100); RBC DISTRIBUTION WIDTH 17.6 % (12.0-16.0); RED CELL COUNT 2.84 10/6/uL (4.0-5.6); WHITE BLOOD CELLS 7.1 10/3/uL (4.5-10.5)
[2016-05-14 05:42] LABS: MANUAL DIFF YES %; PLATELET COUNT 21 10/3/uL (150-400)
[2016-05-14 05:46] LABS: BUN (BLOOD UREA NITROGEN) 11 MG/DL (6-23); CALCIUM, SERUM 8.2 MG/DL (8.5-10.4); CHLORIDE, SERUM 109 MMOL/L (96-112); CO2 (CARBON DIOXIDE) 25 MMOL/L (24-34); CREATININE 0.58 MG/DL (0.55-1.02); GFR AFRICAN AMERICAN 126 ML/MIN (>=60); GFR NON AFRICAN AMERICAN 109 ML/MIN (>=60); GLUCOSE, SERUM 108 MG/DL (60-99); POTASSIUM, SERUM 4.7 MMOL/L (3.5-5.3); SODIUM, SERUM 142 MMOL/L (135-148)
[2016-05-14 07:41] LABS: BAND NEUTROPHILS 13 %; IMMATURE GRANS ABSOLUTE (CALC) 0.07 10/3/uL (0.0-0.11); LYMPHOCYTES 10 %; LYMPHOCYTES ABSOLUTE (CALC) 0.71 10/3/uL (0.67-4.30); METAMYELOCYTES 1 %; MONOCYTES 6 %; MONOCYTES ABSOLUTE (CALC) 0.43 10/3/uL (0.21-1.20); NEUTROPHILS ABSOLUTE (CALC) 5.89 10/3/uL (2.02-8.40); SEGMENTED NEUTROPHIL (0) 70 %; TOTAL NUCLEATED CELLS 100
[2016-05-14 07:42] LABS: ANISOCYTOSIS 1+ (5-10/OIF) (0-5/OIF)
[2016-05-14] MEDS ORDERED: D.O.S.100 MG PO (12:44)
[2016-05-14] MEDS ORDERED: MIRALAX POWDER1 PKT PO (12:47)
[2016-05-14] MEDS ORDERED: T PO (12:56)
[2016-05-14] MEDS ORDERED: ZOFRAN4 PO (12:58)
[2016-05-14] MEDS ORDERED: SENTAB PO (13:00)
[2016-05-14] MEDS ORDERED: LEVAQUIN750 MG PO (13:10)
[2016-06-03] MEDS ORDERED: CHEMOTHERAPY IV (14:46)
[2016-06-03] MEDS ORDERED: GEMZAR IV (14:48)
[2016-06-05] MEDS ORDERED: XGEVA120 MG/1.7 SC (13:00)
[2016-06-05] MEDS ORDERED: L20 PO (13:01)
[2016-06-05] MEDS ORDERED: KLOR-CON 1010 MEQ PO (13:02)
[2016-06-18] MEDS ORDERED: 5FU IV (14:24)
[2016-06-18] MEDS ORDERED: [UNRECOGNIZED DRUG - OTHER] IV (14:25)
[2016-06-18] MEDS ORDERED: XELODA PO ×2 (14:38→14:39)
[2016-08-11] MEDS ORDERED: XELODA PO (16:06)
[2016-08-11] MEDS ORDERED: PROTONIX PO (16:11)
== END 2016-05-14 14:11 | disposition home or self-care (01) | DRG 871 ==
LOC: ER 21:29 → 5NO 23:28 → 4EA 05-11 22:49
PROVIDERS: Emergency Medicine; Hospitalist; Internal Medicine; Nurse Practitioner Family
DX: A41.9 Sepsis, unspecified organism (principal); J18.9 Pneumonia, unspecified organism; J96.21 Acute and chronic respiratory failure with hypoxia; J81.1 Chronic pulmonary edema; D61.810 Antineoplastic chemotherapy induced pancytopenia; C79.51 Secondary malignant neoplasm of bone; C50.919 Malignant neoplasm of unspecified site of unspecified female breast
CPT/HCPCS: 71010; 71020; 71275; 80048; 80053; 81001; 82962; 83605; 83690; 83735; 83880; 84100; 84145; 84443; 84484; 85025; 85379; 85610; 85730; 87040; 87449; 93005; 94640; 96374; 96375; 99285; A9270-GY; C8929; J0692; J1170; J1940; J2405; J2550; J3370; Q9957

== ENCOUNTER 2016-06-10 10:08 | Day surgery (SDC) | payer OTHER ==
--- NOTE | ~2016-06-10 | EGD ---
EGD REPORT [facility] [address] [address] NAME: JODI JAMESON : 69 STATUS : REG [facility]#: [id number] AGE: 50 ADM/REG DATE : 06/10/16 MR#: [id number] REPORT SERV DATE: 06/10/16 DICTATED BY: LEANDRO WEINBERG DATE: 06/10/16 REPORT STATUS : Draft TRANSCRIBED BY: [facility] DATE: 06/10/16 Pulmonology Patient Name: Jodi Jameson Procedure Date: 06/10/2016 12:37 PM Date of : 1965 Attending MD: TIANNA WEINBERG MD Procedure Date No Time: 06/10/2016 Procedure: Bronchoscopy \T\ Thoracentesis Indications: Intersitial infiltrates and bilateral pleural effusions Providers: TIANNA WEINBERG MD Referring MD: Braulio Rene III, MD Medicines: Lidocaine 2% 20 mL Complications: No immediate complications Procedure: Pre-Anesthesia Assessment: - A History and Physical has been performed. Patient meds and allergies have been reviewed. The risks and benefits of the procedure and the sedation options and risks were discussed with the patient. All questions were answered and informed consent was obtained. Patient identification and proposed procedure were verified prior to the procedure by the physician and the nurse in the pre-procedure area in the procedure room. Mental Status Examination: alert and oriented. Airway Examination: normal oropharyngeal airway. Respiratory Examination: poor air movement. CV Examination: normal and RRR, no murmurs, no S3 or S4. ASA Grade Assessment: IV - A patient with severe systemic disease that is a constant threat to life. After reviewing the risks and benefits, the patient was deemed in satisfactory condition to undergo the procedure. The anesthesia plan was to use general anesthesia. Immediately prior to administration of medications, the patient was re-assessed for adequacy to receive sedatives. The heart rate, respiratory rate, oxygen saturations, blood pressure, adequacy of pulmonary ventilation, and response to care were monitored throughout the procedure. The physical status of the patient was re-assessed after the procedure. After obtaining informed consent, the BF [id number] was introduced through the mouth, via the endotracheal tube (the patient was intubated for the procedure) and advanced to the tracheobronchial tree. After obtaining informed consent, The procedure was accomplished without difficulty. The patient tolerated the procedure well. Findings: EGD REPORT [address] [address] NAME: JODI JAMESON : 69 STATUS : REG [facility] PAT#: [id number] AGE: 50 ADM/REG DATE : 06/10/16 MR#: [id number] REPORT SERV DATE: 06/10/16 DICTATED BY: LEANDRO WEINBERG DATE: 06/10/16 REPORT STATUS : Draft TRANSCRIBED BY: [employer] DATE: 06/10/16 Left U/S guided thoracentesis The patient was placed in the appropriate position. Ultrasound survey of the left chest was performed with identification of pleural fluid and surrounding structures including the diaphragm and lung tissue. Ultrasound image interpretation: The depth to the chest wall is approximately 2 cms. The depth of the pocket is approximately >5 cms. Ultrasound images were permanently documented. The site of entry was marked using ultrasound guidance. After donning cap, mask, sterile gown and gloves, the patient was prepped with chlorhexadine and drapped. 10 ccs of 2% lidocaine with epinephrine 1:100,000 was used to numb the region. A finder needle was then used to locate fluid with aspiration of serous fluid. A small incision was performed at insertion site and a temporary 8 Sri Lankan pleural catheter was inserted over a needle. The catheter was attached to a suction device (vacuum bottle) and 600 mls of serous fluid was removed. Bronchoscopy The endotracheal tube is in good position. The visualized portion of the trachea is of normal caliber. The caroline is sharp. The tracheobronchial tree was examined to at least the first subsegmental level. Bronchial mucosa and anatomy are normal; there are no endobronchial lesions, and no secretions. Fluoroscopically guided transbronchial brushings were obtained in the left upper lobe of the lung and sent for routine cytology and bacterial, AFB and fungal analysis. One sample was obtained. Bronchoalveolar lavage was performed in the left upper lobe of the lung and sent for cell count, cytology, bacterial culture, viral smears \T\ culture, and fungal and AFB analysis. 180 mL of fluid were instilled. 30 mL were returned. The return was blood-tinged and cellular. Transbronchial biopsies were performed in the right upper lobe, in the right middle lobe and in the right lower lobe of the lung using forceps and sent for histopathology examination. The procedure was guided by fluoroscopy. Nine biopsy passes were performed. Seven biopsy samples were obtained. Impression: Rapid On-Site Evaluation (YECENIA): Preliminary cytology is POSITIVE for malignancy consistent with lymphangetic spread of disease (final results are pending). Left thoracentesis: 600 mls of serous fluid was removed. Recommendation: - Await test results. - Chest X-ray. - Refer to/consult with Thoracic Surgery, Dr. Mccord, for pleurodesis - Follow up with referring physician, Dr. Rene Attending Participation: I personally performed the entire procedure. EGD REPORT [address] [place]. [address] NAME: JODI JAMESON : 69 STATUS : REG [facility] PAT#: [id number] AGE: 50 ADM/REG DATE : 06/10/16 MR#: [id number] REPORT SERV DATE: 06/10/16 DICTATED BY: LEANDRO WEINBERG DATE: 06/10/16 REPORT STATUS : Draft TRANSCRIBED BY: [employer] DATE: 06/10/16 TIANNA WEINBERG MD 06/10/2016 2:49 PM This report has been signed electronically. Number of Addenda: 0 Note Initiated On: 06/10/2016 12:[address] [place], [place] [address] [address]
[~2016-06-10 10:08] MED LIST changes: +D.O.S.100 MG PO; +GEMZAR IV; +KLOR-CON 1010 MEQ PO; +L20 PO; +LEVAQUIN750 MG PO; +MIRALAX POWDER1 PKT PO; +SENTAB PO; +T PO; +ZOFRAN4 PO
[2016-06-10 10:39] LABS: HEMOGLOBIN 10.3 g/dL (12.0-16.0); MEAN CORPUSCULAR HEMOGLOB 29.8 pg (26.0-34.0); MEAN CORPUSCULAR VOLUME 93.1 fL (80-100); NUCLEATED RED BLOOD CELLS 3.3 /100WBC (0-0); RBC DISTRIBUTION WIDTH 17.3 % (12.0-16.0)
[2016-06-10 10:40] LABS: INTERNATIONAL NORMAL RATI 1.1 UNITS (-); PARTIAL THROMBO TIME 27.1 SEC (22.5-37.2); PROTIME (NOT ORD) 13.8 SEC (12.0-14.5)
[2016-06-10 10:41] LABS: HEMATOCRIT 32.2 % (36.0-48.0); PLATELET COUNT 180 10/3/uL (150-400); RED CELL COUNT 3.46 10/6/uL (4.0-5.6); WHITE BLOOD CELLS 17.4 10/3/uL (4.5-10.5)
[2016-06-10 10:42] LABS: MANUAL DIFF YES %
[2016-06-10 10:45] LABS: BUN (BLOOD UREA NITROGEN) 8 MG/DL (6-23); CALCIUM, SERUM 8.5 MG/DL (8.5-10.4); CHLORIDE, SERUM 107 MMOL/L (96-112); CO2 (CARBON DIOXIDE) 28 MMOL/L (24-34); CREATININE 0.72 MG/DL (0.55-1.02); GFR AFRICAN AMERICAN 115 ML/MIN (>=60); GFR NON AFRICAN AMERICAN 99 ML/MIN (>=60); GLUCOSE, SERUM 84 MG/DL (60-99); POTASSIUM, SERUM 4.4 MMOL/L (3.5-5.3); SODIUM, SERUM 142 MMOL/L (135-148)
[2016-06-10 11:24] LABS: ANISOCYTOSIS 1+ (5-10/OIF) (0-5/OIF); BAND NEUTROPHILS 7 %; IMMATURE GRANS ABSOLUTE (CALC) 0.17 10/3/uL (0.0-0.11); LYMPHOCYTES 6 %; LYMPHOCYTES ABSOLUTE (CALC) 1.04 10/3/uL (0.67-4.30); METAMYELOCYTES 1 %; MONOCYTES 4 %; NEUTROPHILS ABSOLUTE (CALC) 15.49 10/3/uL (2.02-8.40); PLATELET ESTIMATE ADQ (ADEQUATE); SEGMENTED NEUTROPHIL (0) 82 %; TOTAL NUCLEATED CELLS 100
[2016-06-10 16:23] LABS: BD FL SOURCE (NOT ORD) PLEURAL FLUID
[2016-06-10 16:39] LABS: GLUCOSE BODY FL (NOT ORD) 87 MG/DL; LDH BODY FLUID (NOT ORD) 224 U/L
[2016-06-10 17:08] LABS: BF TOTAL CELL CT (NOT ORD 239 /MM3; BODY FLUID RBC (NOT ORD) 376 /MM3
[2016-06-10 17:28] LABS: BD FL LYMPH (NOT ORD) 14 %; BF BASO (NOT OF) 0 %; BF LARGE MONONUCLEAR 56 %; BODY FLUID EOS (NOT ORD) 0 %; BODY FLUID SEG (NOT ORD) 30 %
[2016-06-10 17:29] LABS: BD FL SOURCE (NOT ORD) PLEURAL
[2016-06-10 19:14] LABS: BD FL LYMPH (NOT ORD) 11 %; BF BASO (NOT OF) 0 %; BF LARGE MONONUCLEAR 68 %; BODY FLUID EOS (NOT ORD) 0 %; BODY FLUID SEG (NOT ORD) 21 %
[2016-06-10 19:15] LABS: BD FL SOURCE (NOT ORD) BAL; BF TOTAL CELL CT (NOT ORD 110 /MM3; BODY FLUID RBC (NOT ORD) 1000 /MM3
[2016-06-18] MEDS ORDERED: 5FU IV (14:24)
[2016-06-18] MEDS ORDERED: [UNRECOGNIZED DRUG - OTHER] IV (14:25)
[2016-06-18] MEDS ORDERED: XELODA PO ×2 (14:38→14:39)
[2016-08-11] MEDS ORDERED: XELODA PO (16:06)
[2016-08-11] MEDS ORDERED: PROTONIX PO (16:11)
== END 2016-06-10 16:43 | disposition home or self-care (01) ==
LOC: DMU 10:08
PROVIDERS: Anesthesiology; Internal Medicine
PROC: 0BBD8ZX Excision of Right Middle Lung Lobe, Via Natural or Artificial Opening Endoscopic, Diagnostic (ICD-10-PCS; 2016-06-10)
PROC: 0BBF8ZX Excision of Right Lower Lung Lobe, Via Natural or Artificial Opening Endoscopic, Diagnostic (ICD-10-PCS; 2016-06-10)
PROC: 0B948ZX Drainage of Right Upper Lobe Bronchus, Via Natural or Artificial Opening Endoscopic, Diagnostic (ICD-10-PCS; principal; 2016-06-10 11:00)
PROC: 0B9D8ZX Drainage of Right Middle Lung Lobe, Via Natural or Artificial Opening Endoscopic, Diagnostic (ICD-10-PCS; 2016-06-10 11:00)
PROC: 0B9F8ZX Drainage of Right Lower Lung Lobe, Via Natural or Artificial Opening Endoscopic, Diagnostic (ICD-10-PCS; 2016-06-10 11:00)
PROC: 0BBC8ZX Excision of Right Upper Lung Lobe, Via Natural or Artificial Opening Endoscopic, Diagnostic (ICD-10-PCS; 2016-06-10 11:00)
DX: C34.11 Malignant neoplasm of upper lobe, right bronchus or lung (principal); E78.5 Hyperlipidemia, unspecified; G47.33 Obstructive sleep apnea (adult) (pediatric); J45.909 Unspecified asthma, uncomplicated; M54.9 Dorsalgia, unspecified; K21.9 Gastro-esophageal reflux disease without esophagitis; F41.9 Anxiety disorder, unspecified; D64.9 Anemia, unspecified
CPT/HCPCS: 71010; 80048; 82945; 82962; 83615; 83986; 84157; 85025; 85610; 85730; 87015; 87070; 87102; 87116; 87205; 88112; 88305; 88333; 88341; 88342; 88360; 89051; 93005; A9270-GY; C1725; J2250; J2370; J2405; J2710; J3010

== ENCOUNTER 2016-06-22 12:42 | Inpatient (IN) | payer OTHER ==
--- NOTE | ~2016-06-22 | DS ---
Discharge Summary [id number] [place]. [address] NAME: JODI JAMESON : 69 STATUS : DIS IN PAT#: [id number] AGE: 50 ADM/REG DATE : 06/22/16 MR#: [id number] REPORT SERV DATE: 07/04/16 DICTATED BY: FELECIA MCCORD JR. DATE: 07/03/16 REPORT STATUS : Draft TRANSCRIBED BY: DENEEN DATE: 07/03/16 Data Collection from hospitalization DISCHARGE DIAGNOSES: 1. Bilateral pleural effusions. 2. History of breast cancer with bilateral mastectomy. 3. History of previously diagnosed malignant effusion. 4. Chemotherapy-induced agranulocytosis. 5. History of PleurX catheter placement in the left chest. 6. Obstructive sleep apnea. CONSULTATIONS: None. PROCEDURES PERFORMED: Bronchoscopy, right thoracoscopy with exploration, pericardial window with pericardial biopsy, parietal pleural biopsy, complete decortication, chemical pleurodesis (Betadine), intercostal nerve block, and placement of PleurX catheter on 06/22/2016. PATHOLOGY: Right pleural fluid for cytology (ThinPrep, cell block, and direct smears) - metastatic adenocarcinoma. Pericardium - fibromembranous tissue with metastatic adenocarcinoma consistent with breast origin. ER - negative 0%. PA negative - 0%. HER-2 Lneu - not over expressed, score 0. Parietal pleura biopsy - fibromembranous and soft tissue with mesothelioma hyperplasia and atypical groups, suspicious for metastatic adenocarcinoma of breast origin. MEDICATIONS: Aspirin 81 mg daily, Xeloda 1500 mg daily and 2000 mg every morning, Zyrtec 10 mg at bedtime, Xgeva 120 mg subcutaneously every four weeks, docusate sodium 100 mg twice a day as needed, Pepcid 40 mg at bedtime, Prozac 10 mg daily, Lasix 20 mg twice a day, [place] 5/325 one to two tablets every four hours as needed, melatonin 5 mg at bedtime as needed, Dulera two puffs via inhaler daily, Zofran 4-8 mg every six hours as needed, OxyContin 10 mg at bedtime, Protonix 40 mg daily, MiraLAX one packet daily as needed, Klor-Con 10 mEq twice a day, Gemzar as instructed, 5-FU every three weeks as instructed, and Ixempra IV every three weeks as instructed. CONDITION AT DISCHARGE: Stable. DISPOSITION: The patient was discharged home on a regular diet with activities as instructed. She would follow up with me on 07/27/2016. HOSPITAL COURSE: This is a 50-year-old female who has been sent to us by Dr. Yang for consideration of pleurodesis for recurrent pleural effusion. She has a longstanding history of breast cancer, which initially started back in 1993. She had undergone lumpectomy followed by chemotherapy and radiation. 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 At that time, she underwent bilateral mastectomies with immediate reconstruction and was started on hormonal therapy in 2014 and she underwent a bone biopsy which was positive for metastatic breast cancer. In 2015, she began developing pleural effusion. She had undergone left thoracentesis yielding 350 mL on 01/24/2016; on 02/05/2016; yielded 400 mL; on 02/13/2016; Discharge Summary [address] [address] NAME: JODI JAMESON : 69 STATUS : DIS IN PAT#: [id number] AGE: 50 ADM/REG DATE : 06/22/16 MR#: [id number] REPORT SERV DATE: 07/04/16 DICTATED BY: FELECIA MCCORD JR. DATE: 07/03/16 REPORT STATUS : Draft TRANSCRIBED BY: DENEEN DATE: 07/03/16 yielded 650 mL; on 02/21/2016; yielded 600 mL; on 03/23/2016; yielded 1 liter; on 04/01/2016; she had placement of PleurX catheter with 1 liter of fluid removed; and again on 06/10/2016; 600 mL were removed. Her PleurX catheter was removed on 04/19/2016 secondary to clotting and pain. She also underwent right thoracentesis, which yielded 160 mL on 06/03/2016. A repeat CT scan on 06/03/2016 showed multiple sclerotic osseous metastatic disease in the pelvis, sacrum, lumbar spine, and thoracic spine, all of which were unchanged, but increasing interstitial changes within the lung and moderate-sized bilateral pleural effusions. On 06/10/2016, she underwent EBUS and left thoracentesis by Dr. Yang. Bronchoscopic biopsies from the right upper, middle, and lower lobes showed malignant cells consistent with metastatic mammary carcinoma. The pleural fluid from the left chest also showed rare atypical cells, suspicious for malignancy. Her tumor had now mutated to become triple negative. She continued to receive chemotherapy. We were asked to see her to consider pleurodesis to help with palliation. She was admitted to the hospital for further evaluation and treatment. Upon admission, she was taken to the operating room where she underwent the above-mentioned procedure. She tolerated this well, and there were no complications. On postop day #1, O2 saturation was 97% on 1 liter. Urine output was adequate. Wounds were clean, dry, and intact. She had good pain control. On postop day #2, she remained afebrile. Her abdomen was soft and nontender. She had positive bowel sounds. The epidural catheter remained in place. Tucker catheter was removed. Discharge planning was performed. On 06/25/2016, the epidural catheter was removed and the tip was intact. Her pain was controlled. Discharge instructions were given. Due to her improved and stable condition, she was discharged home with the above-stated instructions. Information collected by: Nereida Mcnally I submit the above information as my discharge summary. TG/MODL Felecia Mccord Jr., M.D. / [id number] CC: Nory Gaona Jr., M.D.
--- NOTE | ~2016-06-22 | OP ---
Record Of Operation [facility] [address] [place]. [address] NAME: JODI JAMESON : 69 STATUS : ADM IN [facility]#: [id number] AGE: 50 ADM/REG DATE : 06/22/16 MR#: [id number] REPORT SERV DATE: 06/22/16 DICTATED BY: FELECIA MCCORD JR. DATE: 06/22/16 REPORT STATUS : Draft TRANSCRIBED BY: MODMomo DATE: 06/22/16 DATE OF PROCEDURE: 06/22/2016 PREOPERATIVE DIAGNOSES: Bilateral pleural effusions, status post breast cancer with bilateral mastectomy, history of previous diagnosed malignant effusion, chemotherapy-induced agranulocytosis, status post previous PleurX catheter, left chest. POSTOPERATIVE DIAGNOSES: Bilateral pleural effusions, status post breast cancer with bilateral mastectomy, history of previous diagnosed malignant effusion, chemotherapy-induced agranulocytosis, status post previous PleurX catheter, left chest. NAME OF OPERATION: Bronchoscopy, right thoracoscopy with exploration, pericardial window with pericardial biopsy, parietal pleural biopsy, complete decortication, chemical pleurodesis (Betadine), intercostal nerve block, and placement of PleurX catheter. SURGEON: Felecia Mccord M.D. RESIDENT SURGEON: Augustin Cartwright MD SENIOR FIELD ENGINEER: Maryann Peters. ANESTHESIA: General endotracheal. FINDINGS: The patient was noted to have no endobronchial lesions or contraindication to proceeding with surgery. Mucous secretions were evacuated. Upon exploration of the chest, there was approximately 0.5 L of serosanguineous fluid in the right chest. There was not any visible pleural studding or obvious signs of malignancy other than the serosanguineous effusion. There was a moderate-sized pericardial effusion. This was drained with a pericardial biopsy performed. The pleural biopsy was also performed. We were able to get the lung decorticated and fully re-expanded given the likelihood of this still being a malignant effusion, we decided to do a chemical pleurodesis. Then certainly the effectiveness of the pleurodesis and the lack of talc available to be used, we placed a PleurX catheter as a back up. There was good reexpansion of all three lobes of the lung. Final pathology is pending. The fluid was sent for cultures and cytology, as well as the tissue was sent for pathologic examination. DETAILS OF OPERATION: After adequate general anesthesia, the patient was intubated. Bronchoscopy was performed noting the above findings. A left-sided double-lumen endotracheal tube was then placed. The patient was then positioned in the left lateral decubitus position. The right chest was prepped and draped in routine sterile fashion. A small incision was made overlying the lower intercostal space. Through this single incision site, the above findings were noted. The fluid was evacuated. The pericardial effusion can easily be seen. A pericardial window was performed with electrocautery. A section of pericardium was removed and sent to pathology. Pleural biopsy was performed in the posterolateral aspect of the right chest. The lung was decorticated and easily re-expanded. We were able get any of the loculations broken up. It was felt since the lung would fully Record Of Operation [address] [address] NAME: JODI JAMESON : 69 STATUS : ADM IN [facility]#: [id number] AGE: 50 ADM/REG DATE : 06/22/16 MR#: [id number] REPORT SERV DATE: 06/22/16 DICTATED BY: FELECIA MCCORD JR. DATE: 06/22/16 REPORT STATUS : Draft TRANSCRIBED BY: DENEEN DATE: 06/22/16 re-expand, we should do a chemical pleurodesis along with the fact this was likely still malignant effusion, although, it was not visible throughout. We placed Betadine in the chest cavity. A 20 mL was mixed with 80 mL of saline. An intercostal nerve block was performed. Given the uncertainty of the chemical pleurodesis, we placed a PleurX catheter in the usual fashion. Both 32-Lithuanian chest tube was then placed. Both the drainage tube was secured with silk sutures. The lung was reinflated. The trocar sites were closed with running Vicryl sutures. The skin was closed with running monofilament suture. A Dermabond dressing was applied and the procedure was terminated at this point. The patient tolerated the procedure well and taken back to the recovery room in stable condition. VARSHA/DENEEN Felecia Mccord Jr., M.D. / [id number] CC: Nory Gaona Jr., M.D. Bertrand Marquess Anz III, M.D. Krishnendu Bhadra, M.D.
[~2016-06-22 12:42] MED LIST changes: +5FU IV; +XELODA PO; +[UNRECOGNIZED DRUG - OTHER] IV
[2016-06-22 13:20] LABS: ASCORBIC ACID (UR NOT ORDER) NEG (NEG); BILIRUBIN, URINE NEGATIVE (NEG); KETONE, URINE NEGATIVE (NEG); LEUKOCYTE ESTERASE(NOT OR TRACE (NEG); WBC (NOT ORDERED) (RFLEX) 5 (0-5)
[2016-06-22 13:36] LABS: HEMATOCRIT 29.7 % (36.0-48.0); HEMOGLOBIN 9.9 g/dL (12.0-16.0); MEAN CORPUS HGB CONC 33.3 g/dL (32.0-36.0); MEAN CORPUSCULAR HEMOGLOB 30.1 pg (26.0-34.0); MEAN PLATELET VOLUME 10.2 fL (9.2-13.0); RBC DISTRIBUTION WIDTH 15.6 % (12.0-16.0); RED CELL COUNT 3.29 10/6/uL (4.0-5.6)
[2016-06-22 13:38] LABS: MANUAL DIFF YES %; MEAN CORPUSCULAR VOLUME 90.3 fL (80-100); PLATELET COUNT 112 10/3/uL (150-400); WHITE BLOOD CELLS 6.5 10/3/uL (4.5-10.5)
[2016-06-22 13:52] LABS: A/G RATIO 0.9 (0.7-1.9); ALBUMIN 3.3 G/DL (3.5-5.0); ALKALINE PHOSPHATASE 118 U/L (45-117); BUN (BLOOD UREA NITROGEN) 14 MG/DL (6-23); CALCIUM, SERUM 8.7 MG/DL (8.5-10.4); CHLORIDE, SERUM 107 MMOL/L (96-112); CO2 (CARBON DIOXIDE) 30 MMOL/L (24-34); CREATININE 0.67 MG/DL (0.55-1.02); GFR AFRICAN AMERICAN 120 ML/MIN (>=60); GFR NON AFRICAN AMERICAN 104 ML/MIN (>=60); GLOBULIN 3.6 G/DL (2.5-4.1); GLUCOSE, SERUM 97 MG/DL (60-99); POTASSIUM, SERUM 4.1 MMOL/L (3.5-5.3); SGPT(ALT) 20 U/L (5-65); SODIUM, SERUM 139 MMOL/L (135-148); TOTAL BILIRUBIN 0.6 MG/DL (0-1.2); TOTAL PROTEIN 6.9 G/DL (6.0-8.5)
[2016-06-22 13:53] LABS: SGOT(AST) 27 U/L (5-40)
[2016-06-22 14:19] LABS: BAND NEUTROPHILS 9 %; EOSINOPHILS 4 %; EOSINOPHILS ABSOLUTE (CALC) 0.26 10/3/uL (0.0-0.53); IMMATURE GRANS ABSOLUTE (CALC) 0.33 10/3/uL (0.0-0.11); LYMPHOCYTES 12 %; LYMPHOCYTES ABSOLUTE (CALC) 0.78 10/3/uL (0.67-4.30); METAMYELOCYTES 4 %; MONOCYTES 4 %; MONOCYTES ABSOLUTE (CALC) 0.26 10/3/uL (0.21-1.20); MYELOCYTES 1 %; NEUTROPHILS ABSOLUTE (CALC) 4.88 10/3/uL (2.02-8.40); SEGMENTED NEUTROPHIL (0) 66 %; TOTAL NUCLEATED CELLS 100
[2016-06-22 14:20] LABS: PLATELET ESTIMATE SLT DEC (ADEQUATE); RBC MORPHOLOGY NORM (NORMAL)
[2016-06-22 17:25] LABS: HEMOGLOBIN 9.1 g/dL (12.0-16.0); MEAN CORPUS HGB CONC 33.7 g/dL (32.0-36.0); MEAN CORPUSCULAR HEMOGLOB 30.4 pg (26.0-34.0); MEAN CORPUSCULAR VOLUME 90.3 fL (80-100); MEAN PLATELET VOLUME 8.9 fL (9.2-13.0); PLATELET COUNT 85 10/3/uL (150-400); RBC DISTRIBUTION WIDTH 15.6 % (12.0-16.0); RED CELL COUNT 2.99 10/6/uL (4.0-5.6); WHITE BLOOD CELLS 6.7 10/3/uL (4.5-10.5)
[2016-06-22 17:40] LABS: BUN (BLOOD UREA NITROGEN) 13 MG/DL (6-23); CALCIUM, SERUM 7.9 MG/DL (8.5-10.4); CHLORIDE, SERUM 110 MMOL/L (96-112); CO2 (CARBON DIOXIDE) 24 MMOL/L (24-34); CREATININE 0.59 MG/DL (0.55-1.02); GFR AFRICAN AMERICAN 126 ML/MIN (>=60); GFR NON AFRICAN AMERICAN 108 ML/MIN (>=60); GLUCOSE, SERUM 146 MG/DL (60-99); SODIUM, SERUM 144 MMOL/L (135-148)
[2016-06-22 17:41] LABS: MANUAL DIFF YES %
[2016-06-22 18:49] LABS: BAND NEUTROPHILS 17 %; BASOPHILS 1 %; BASOPHILS ABSOLUTE (CALC) 0.07 10/3/uL (0.0-0.16); EOSINOPHILS 2 %; EOSINOPHILS ABSOLUTE (CALC) 0.13 10/3/uL (0.0-0.53); IMMATURE GRANS ABSOLUTE (CALC) 0.13 10/3/uL (0.0-0.11); LYMPHOCYTES 10 %; LYMPHOCYTES ABSOLUTE (CALC) 0.67 10/3/uL (0.67-4.30); METAMYELOCYTES 2 %; MONOCYTES 3 %; NEUTROPHILS ABSOLUTE (CALC) 5.49 10/3/uL (2.02-8.40); PLATELET ESTIMATE DEC (ADEQUATE); RBC MORPHOLOGY NORM (NORMAL); SEGMENTED NEUTROPHIL (0) 65 %; TOTAL NUCLEATED CELLS 100
[2016-06-23 05:49] LABS: HEMATOCRIT 25.4 % (36.0-48.0); HEMOGLOBIN 8.5 g/dL (12.0-16.0); MANUAL DIFF YES %; MEAN CORPUS HGB CONC 33.5 g/dL (32.0-36.0); MEAN CORPUSCULAR HEMOGLOB 30.5 pg (26.0-34.0); MEAN PLATELET VOLUME 8.8 fL (9.2-13.0); PLATELET COUNT 88 10/3/uL (150-400); RBC DISTRIBUTION WIDTH 15.5 % (12.0-16.0); RED CELL COUNT 2.79 10/6/uL (4.0-5.6); WHITE BLOOD CELLS 6.9 10/3/uL (4.5-10.5)
[2016-06-23 05:56] LABS: BUN (BLOOD UREA NITROGEN) 13 MG/DL (6-23); CALCIUM, SERUM 7.8 MG/DL (8.5-10.4); CHLORIDE, SERUM 105 MMOL/L (96-112); CO2 (CARBON DIOXIDE) 27 MMOL/L (24-34); CREATININE 0.71 MG/DL (0.55-1.02); GFR AFRICAN AMERICAN 117 ML/MIN (>=60); GFR NON AFRICAN AMERICAN 101 ML/MIN (>=60); GLUCOSE, SERUM 145 MG/DL (60-99); POTASSIUM, SERUM 4.6 MMOL/L (3.5-5.3); SODIUM, SERUM 137 MMOL/L (135-148)
[2016-06-23 06:30] LABS: BAND NEUTROPHILS 3 %; LYMPHOCYTES 3 %; LYMPHOCYTES ABSOLUTE (CALC) 0.21 10/3/uL (0.67-4.30); MONOCYTES 1 %; MONOCYTES ABSOLUTE (CALC) 0.07 10/3/uL (0.21-1.20); NEUTROPHILS ABSOLUTE (CALC) 6.62 10/3/uL (2.02-8.40); PLATELET ESTIMATE DEC (ADEQUATE); RBC MORPHOLOGY NORM (NORMAL); SEGMENTED NEUTROPHIL (0) 93 %; TOTAL NUCLEATED CELLS 100
[2016-06-24 05:57] LABS: BUN (BLOOD UREA NITROGEN) 13 MG/DL (6-23); CALCIUM, SERUM 8.2 MG/DL (8.5-10.4); CHLORIDE, SERUM 109 MMOL/L (96-112); CO2 (CARBON DIOXIDE) 25 MMOL/L (24-34); CREATININE 0.67 MG/DL (0.55-1.02); GFR AFRICAN AMERICAN 120 ML/MIN (>=60); GFR NON AFRICAN AMERICAN 104 ML/MIN (>=60); GLUCOSE, SERUM 111 MG/DL (60-99); POTASSIUM, SERUM 4.3 MMOL/L (3.5-5.3); SODIUM, SERUM 142 MMOL/L (135-148)
[2016-08-11] MEDS ORDERED: XELODA PO (16:06)
[2016-08-11] MEDS ORDERED: PROTONIX PO (16:11)
== END 2016-06-25 12:35 | disposition home or self-care (01) | DRG 164 ==
LOC: SDC/OF 12:42 → 5NO 18:18
PROVIDERS: Nurse Practitioner Acute Care; Thoracic Surgery (Cardiothoracic Vascular Surgery)
PROC: 0BDN4ZZ Extraction of Right Pleura, Percutaneous Endoscopic Approach (ICD-10-PCS; 2016-06-22)
PROC: 0W9D40Z Drainage of Pericardial Cavity with Drainage Device, Percutaneous Endoscopic Approach (ICD-10-PCS; 2016-06-22)
PROC: 3E0L3GC Introduction of Other Therapeutic Substance into Pleural Cavity, Percutaneous Approach (ICD-10-PCS; 2016-06-22)
PROC: 3E0T3BZ Introduction of Anesthetic Agent into Peripheral Nerves and Plexi, Percutaneous Approach (ICD-10-PCS; 2016-06-22)
PROC: 0BJ08ZZ Inspection of Tracheobronchial Tree, Via Natural or Artificial Opening Endoscopic (ICD-10-PCS; principal; 2016-06-22 14:30)
PROC: 02BN4ZX Excision of Pericardium, Percutaneous Endoscopic Approach, Diagnostic (ICD-10-PCS; 2016-06-22 14:30)
DX: J90 Pleural effusion, not elsewhere classified (principal); C79.51 Secondary malignant neoplasm of bone; Z99.81 Dependence on supplemental oxygen; C50.412 Malignant neoplasm of upper-outer quadrant of left female breast; E11.9 Type 2 diabetes mellitus without complications; G47.33 Obstructive sleep apnea (adult) (pediatric); K21.9 Gastro-esophageal reflux disease without esophagitis; Z86.711 Personal history of pulmonary embolism; Z86.718 Personal history of other venous thrombosis and embolism
CPT/HCPCS: 36415; 71010; 71020; 80048; 80053; 81001; 82962; 85025; 86850; 86900; 86901; 87015; 87070; 87075; 87102; 87116; 87205; 87641; 88112; 88305; 88341; 88342; 88360; 94640; A9270-GY; C1729; C1751; C1769; J0690; J1170; J1885; J2250; J2300; J2405; J2710; J2795; J3010; J3370

== ENCOUNTER 2016-06-27 09:44 | Inpatient (IN) | payer OTHER ==
--- NOTE | ~2016-06-27 | HP ---
History And Physical [place] [id number] [place]. [address] NAME: JODI JAMESON : 69 STATUS : ADM IN [facility]#: [id number] AGE: 50 ADM/REG DATE : 06/27/16 MR#: [id number] REPORT SERV DATE: 06/28/16 DICTATED BY: DATE: REPORT STATUS : Draft TRANSCRIBED BY: MODL DATE: 06/27/16 DATE OF ADMISSION: 06/27/2016 POINT OF ENTRY: Emergency Department. CHIEF COMPLAINT: Intractable nausea, vomiting, and diarrhea/hematochezia. PRIMARY ONCOLOGIST: Braulio Rene M.D., [facility]. HISTORY OF PRESENT ILLNESS: The patient's history was obtained through interview with the patient and her spouse coupled with review of [facility] records. During the interview the patient remained drowsy secondary to receiving Phenergan, Benadryl, and Ativan in the ER. The patient gave permission for spouse to answer majority of health history questions. The patient is a 50-year-old female with a history of breast cancer first diagnosed in 1994 with first recurrence in 2010 and then further metastatic spread in 2014, bilateral malignant pleural effusions, chronic interstitial lung disease, chronic hypoxic respiratory failure, bilateral pneumonia, type 2 diabetes mellitus, right upper extremity DVT, and pulmonary embolism. The patient was recently hospitalized at [facility] between the dates of 06/22/2016 and 06/25/2016 for bronchoscopy, right thoracoscopy with exploration, pericardial window with pericardial biopsy, parietal pleural biopsy, complete decortication, chemical pleurodesis, intercostal nerve block, and placement of right-sided PleurX catheter. The patient has been reported that up until hospitalization on 06/22/2016 the patient was doing "fairly well" at home. The patient complained of generalized abdominal cramping upon returning home from the hospital on 06/25/2016 and then began suffering from nausea, vomiting, and diarrhea. The patient reports minimal p.o. intake over the past 72 hours due to uncontrolled nausea with vomiting with each attempt to consume oral intake. The patient also complains of uncontrolled diarrhea x3 days. The patient reports visible bright red blood in her stool early a.m. today before presenting to the emergency department. The patient also reports one more episode of bright red blood in her stool during emergency department visit. The patient states since last episode of bloody stool she has experienced two more episodes of diarrhea with no evidence of blood. The patient denies ever having a colonoscopy. States she had an upper GI endoscopy approximately five years ago performed by Dr. Dyer in [place], [place], for evaluation of increased symptoms related to GERD. The patient also reported "restless legs" for the past couple of days that increased significantly after being given Phenergan earlier today in the emergency department. The patient states that she is on chronic pain management and has been unable to take her medications for approximately 48 hours and believes this may be contributing to her restless History And Physical [address] [address] NAME: JODI JAMESON : 69 STATUS : ADM IN [facility]#: [id number] AGE: 50 ADM/REG DATE : 06/27/16 MR#: [id number] REPORT SERV DATE: 06/28/16 DICTATED BY: DATE: REPORT STATUS : Draft TRANSCRIBED BY: MODL DATE: 06/27/16 legs. REVIEW OF SYSTEMS: GENERAL: No fever, sweats, or rigors. EYES: No blurred or double vision. HENT: No headache. CARDIOVASCULAR: No chest pains, palpitations, or syncopal events. RESPIRATORY: No recent cough, wheezing, or hemoptysis. GASTROINTESTINAL: Positive for intractable nausea, vomiting, and diarrhea x3 days, hematochezia within last 24 hours. MUSCULOSKELETAL: Positive for chronic back pain. INTEGUMENT: Negative for rash and nonhealing wounds. NEUROLOGIC: Positive for weakness. No history of stroke, TIA, or seizure. HEMATOLOGIC: Positive for chronic anemia. PSYCHIATRIC: History of depression. : No dysuria or hematuria. ENDOCRINE: Positive for type 2 diabetes mellitus. No history of thyroid disease. HOME MEDICATIONS: 1. Aspirin 81 mg p.o. daily. 2. Xeloda 500 mg tablet, take 2,000 mg p.o. daily, 14 days on and 7 days off. Per the patient, she was supposed to complete 14 days on 06/26/2016; however, has not taken the last two doses. 3. Xeloda 1500 mg p.o. daily with supper 14 days on and 7 days off. The patient was to complete 14 days on 06/26/2016; however, last two doses were not taken. 4. Zyrtec 10 mg tablet p.o. daily at bedtime. 5. Xgeva one dose subcu every 4 weeks. 6. Famotidine 40 mg tablet p.o. at bedtime. 7. Prozac 10 mg tablet p.o. daily. 8. Lasix 20 mg tablet p.o. with breakfast and supper. 9. [place] 5/325 mg tablet, take one to two tabs p.o. every 4 hours as needed. 10.Imodium 2 mg tablet, take 2 mg to 4 mg p.o. three times daily as needed. 11.Melatonin 5 mg tablet p.o. at bedtime as needed. 12.Dulera 200 mcg/5 mcg inhaler, two puffs inhale daily. 13.Zofran 4 mg to 8 mg p.o. every 6 hours as needed. 14.OxyContin 10 mg CR tablet p.o. at bedtime. 15.Protonix 40 mg tablet p.o. daily. 16.Klor-Con 10 mEq tablet p.o. with breakfast and supper. 17.Gemzar one dose IV every 21 days, last dose approximately two weeks ago. 18.5-FU one dose IV every 21 days, last dose about two weeks ago. 19.Ixempra one dose IV every 21 days, last dose about two weeks ago. ALLERGIES: NO KNOWN DRUG ALLERGIES. SOCIAL HISTORY: The patient is . She has two children. She is a never smoker. Rare use of alcohol. History And Physical [address] [address] NAME: JODI JAMESON : 69 STATUS : ADM IN [facility]#: [id number] AGE: 50 ADM/REG DATE : 06/27/16 MR#: [id number] REPORT SERV DATE: 06/28/16 DICTATED BY: DATE: REPORT STATUS : Draft TRANSCRIBED BY: MODL DATE: 06/27/16 FAMILY HISTORY: The patient's mother has a history of breast cancer. Family history also positive for ovarian cancer. PAST MEDICAL HISTORY: 1. Breast cancer diagnosed in 1994, first recurrence in 2010, metastatic spread in 2014 to bone and pleura. 2. Right upper extremity DVT and pulmonary emboli history. 3. Type 2 diabetes. 4. Bilateral malignant pleural effusions status post PleurX catheter. 5. Chronic interstitial lung disease. 6. Asthma. 7. Obstructive sleep apnea, intolerant of CPAP. 8. GERD. 9. UTI ESBL E. coli. 10.Cellulitis/mastitis, breast. 11.Chronic hypoxic respiratory failure. 12.Bilateral pneumonia. PAST SURGICAL HISTORY: 1. Bilateral mastectomy with reconstruction. 2. Hysterectomy/oophorectomy. 3. x2. 4. Septoplasty. 5. Multiple thoracenteses. 6. Bronchoscopy right thoracoscopy, pericardial window with pericardial biopsy. Complete decortication and chemical pleurodesis with placement of right-sided PleurX catheter on 06/22/2016. PHYSICAL EXAMINATION: VITAL SIGNS: The patient weighs 62.40 kg and is 5 feet 5 inches tall. Temperature 97.8, blood pressure 156/86, heart rate 89, oxygen saturation 94% on room air, and respirations 18. NEURO: The patient is drowsy with no focal deficits. GENERAL: The patient is alert and oriented x3. Drowsy secondary to recent medication. NECK: No lymphadenopathy. CHEST: No tenderness to palpation. LUNGS: Clear to anterior auscultation. Normal work of breathing. No wheezes. No rhonchi. CARDIOVASCULAR: Regular rhythm with no murmurs, rubs, or gallops. ABDOMEN: Soft. No distention. Mild generalized tenderness to palpation. Bowel sounds present in all four quadrants. No organomegaly. EXTREMITIES: No edema to bilateral lower extremities. PSYCH: Normal affect. LABORATORY DATA: Sodium 142, potassium 3.4, BUN 14, creatinine 0.54, and glucose 116. White blood cell count 10.5, hemoglobin 9.6, hematocrit 28.9, and platelets 224. History And Physical [address] [address] NAME: JODI JAMESON : [birth year] STATUS : ADM IN [facility]#: [id number] AGE: 50 ADM/REG DATE : 06/27/16 MR#: [id number] REPORT SERV DATE: 06/28/16 DICTATED BY: DATE: REPORT STATUS : Draft TRANSCRIBED BY: MODL DATE: 06/27/16 ASSESSMENT AND PLAN: 1. Gastrointestinal bleed, acute. The patient reports two episodes of bright red blood in stool x2 today. The patient has a current history of aspirin 81 mg p.o. daily. The patient is also on medications to include Xeloda and 5-FU, both of which have side effects associated with GI hemorrhage. Aspirin has been discontinued. Normal saline at 125 mL/h has been initiated. GI has been consulted for evaluation and recommendations, and consideration for colonoscopy. 2. Intractable diarrhea. This has been present for approximately three days. Stool studies to include Clostridium difficile, ova and parasite screen and fecal leuks were negative. This may be related to 5-FU which is known to cause severe diarrhea. Antidiarrheals will be provided as needed, and IV fluid hydration will be administered cautiously secondary to history of pleural effusions and overload. 3. Acute nausea with vomiting, intractable. This has been present for approximately three days. Exact etiology is unclear, but this may be related to side effects of medications to treat metastatic breast cancer to include Ixempra, Xeloda, and Gemzar. The patient will not receive Phenergan secondary to adverse reaction in the emergency department to include bilateral lower extremity restlessness. Zofran has been ordered p.r.n. Clear liquid diet for now. 4. Acute restless legs. The patient reports this condition x2 days with significant increase in symptoms after administration of Phenergan during ER stay earlier today. The patient is on chronic pain management and has not been able to take p.o. medications for approximately 48-72 hours secondary to intractable nausea and vomiting. This may be related to withdrawal symptoms. P.O. pain medications as tolerated. IV Dilaudid as needed. 5. Metastatic breast cancer with metastases to bone and pleura. The patient is currently under the outpatient care of Dr. Rene at [facility]. Treatment therapies include Xeloda, 5-FU, Gemzar, and Ixempra. 6. Malignant pleural effusions bilaterally. The patient has history of left-sided PleurX that has since been removed and multiple left-sided thoracentesis. The patient is status post bronchoscopy, right thoracoscopy, decortication, pleurodesis, and placement of right-sided PleurX catheter, postoperative day #5. 7. PleurX catheter will be drained today and then on Mondays, Wednesdays, and Fridays. Output to be charted. 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 Pericardial biopsy results pending. 8. Type 2 diabetes. The patient is not currently on any medication therapy. Monitor blood glucose and treat per sliding scale accordingly. 9. Chronic hypoxic respiratory failure with history of bilateral pneumonia. The patient has history of home O2 dependency. Provide supplemental oxygenation per nasal cannula to maintain saturation 92% or above. 10.History of obstructive sleep apnea. The patient is CPAP intolerant. Care of this patient will be transferred to the service of Dr. Chad Gaona. FRANCIS/DENEEN History And Physical [address] [address] NAME: JODI JAMESON : 69 STATUS : ADM IN [facility]#: [id number] AGE: 50 ADM/REG DATE : 06/27/16 MR#: [id number] REPORT SERV DATE: 06/28/16 DICTATED BY: DATE: REPORT STATUS : Draft TRANSCRIBED BY: DENEEN DATE: 06/27/16 ber [facility] EXAMINER-C / [id number] CC: MD Ariel Morelos II, M.D.
--- NOTE | ~2016-06-27 | CN ---
Consultation Report [facility] [place] [address] [facility] [place] [place]. [address] NAME: JODI JAMESON : 69 STATUS : ADM IN [facility]#: [id number] AGE: 50 ADM/REG DATE : 06/27/16 MR#: [id number] REPORT SERV DATE: 06/28/16 DICTATED BY: SERAFIN BOJORQUEZ DATE: 06/28/16 REPORT STATUS : Draft TRANSCRIBED BY: MODMomo DATE: 06/28/16 CONSULTATION DATE OF CONSULTATION: REASON FOR CONSULTATION: Nausea, vomiting, diarrhea, and hematochezia. HISTORY OF PRESENT ILLNESS: Ms. Jameson is a 50-year-old woman with metastatic breast cancer who recently underwent a pleurodesis for malignant pleural effusion. The patient was discharged and presented a few days later with symptoms of intractable nausea associated with dry heaves. Symptoms were fairly severe. She also had profuse watery diarrhea occasionally associated with some red blood which she describes as a moderate amount. These symptoms have persisted. She reports today she has had five watery stools. The patient has a remote history of an upper endoscopy by Dr. Dyer approximately five years ago, but otherwise no other abnormalities. PAST MEDICAL HISTORY: Includes metastatic breast cancer with malignant pleural effusions. HOME MEDICATIONS: Include aspirin, Xeloda which she had finished three days prior, famotidine, fluoxetine, furosemide, loperamide, melatonin, Dulera, Zofran, oxycodone, pantoprazole. ALLERGIES: SHE HAS NO KNOWN DRUG ALLERGIES. SOCIAL HISTORY: She does not smoke or drink. FAMILY HISTORY: There is no family history of GI malignancy. REVIEW OF SYSTEMS: Notable for nausea, vomiting, diarrhea, mild abdominal pain, hematochezia, fatigue. Otherwise, a 14-point review of systems reviewed and otherwise negative unless mentioned in the HPI. PHYSICAL EXAMINATION: VITAL SIGNS: Temperature is 97.9, heart rate 75, O2 saturation is 97% on room air, blood pressure 137/62. GENERAL: The patient is lying in bed, in no apparent distress. HEENT: Her head is atraumatic and normocephalic. Her sclerae are nonicteric. Conjunctiva clear. NECK: Revealed no crepitus or thyromegaly. LUNGS: Clear. CARDIOVASCULAR: Regular rate and rhythm. ABDOMEN: Soft and was nontender. EXTREMITIES: Revealed no clubbing, cyanosis, or edema. Consultation Report [facility] [place] [address] [place]. [address] NAME: JODI JAMESON : 69 STATUS : ADM IN PAT#: [id number] AGE: 50 ADM/REG DATE : 06/27/16 MR#: [id number] REPORT SERV DATE: 06/28/16 DICTATED BY: SERAFIN BOJORQUEZ DATE: 06/28/16 REPORT STATUS : Draft TRANSCRIBED BY: MODL DATE: 06/28/16 SKIN: Revealed no gross skin lesions. PSYCHIATRY: She is alert and oriented x3. LABORATORY VALUES: Notable for hemoglobin of 8.8, it is not significantly changed from her baseline. Her platelets are 214. Potassium is 3.6, glucose was 119, creatinine is 0.4. IMPRESSION: 1. Nausea and vomiting. 2. Diarrhea. 3. Hematochezia. Given the C. diff was negative, I suspect this likely is either a viral possibly related to chemotherapeutic agents. At this time, we will plan an upper endoscopy. Should this be negative, I would likely observe the patient for now as hemoglobin appear stable and I suspect the hematochezia is likely secondary to her diarrhea. If this persists, however, we would need to pursue colonoscopy. We would like to avoid this at this time if possible. As I suspect, it would be relatively low yield. The risk of an upper endoscopy including the risks of bleeding, infection, perforation, adverse reaction to sedatives were explained to the patient in detail. She was notified that any complication could require surgery and could be life threatening. She was agreeable and she is to be scheduled today. GO/MODL Serafin Bojorquez MD / [id number] CC: MD Ariel Morelos II, M.D.
--- NOTE | ~2016-06-27 | DS ---
Discharge Summary [address] [place]. [address] NAME: JODI JAMESON : 69 STATUS : DIS IN PAT#: [id number] AGE: 50 ADM/REG DATE : 06/27/16 MR#: [id number] REPORT SERV DATE: 07/02/16 DICTATED BY: DENY CARRIZALES DATE: 07/01/16 REPORT STATUS : Draft TRANSCRIBED BY: MODL DATE: 07/01/16 ADMISSION DATE: 06/27/2016 DISCHARGE DATE: 07/01/2016 DISCHARGE DIAGNOSES: 1. Intractable diarrhea that is resolved. 2. Intractable nausea, vomiting, and hematochezia, resolved, likely related to chemotherapy. 3. Leukocytosis that has resolved. Most recently 9.6. 4. Bilateral malignant pleural effusions with a right PleurX catheter in place. 5. Metastatic breast cancer. 6. Chronic hypoxic respiratory failure and obstructive sleep apnea. 7. Vitamin D deficiency. Started on replacement therapy. DISCHARGE MEDICATIONS: As follows: Prozac 10 mg daily, Lomotil 2.5 mg every eight hours, vitamin D 50,000 units weekly, Imodium 2-4 mg three times a day p.r.n. for diarrhea, Zyrtec 10 mg at bedtime, OxyContin 10 mg at bedtime, [place] 5/325 one to two tablets every four hours p.r.n. for pain, Dulera 200/5 mcg two puffs inhaled daily, aspirin 81 mg daily, Xeloda, Xgeva per [facility], Pepcid 40 mg at bedtime, Lasix 20 mg twice a day, melatonin 5 mg at bedtime p.r.n. for sleep, Zofran 4-8 mg every six hours p.r.n. for nausea, Protonix 40 mg daily, Klor-Con 10 mEq p.o. with breakfast and supper, Gemzar, 5-FU per [facility], and Ixempra per [facility]. HISTORY OF PRESENT ILLNESS: A pleasant 50-year-old white female who presented with intractable nausea, vomiting, diarrhea, and hematochezia. Please see initial H and P of Amber Edouard nurse practitioner. The patient was admitted to the hospitalist service for further evaluation and treatment. CONSULTS DURING THIS ADMISSION: Include GI, Dr. Serafin Bojorquez and nurse practitioner, Gabriel Álvarez. PROCEDURES AND IMAGING PERFORMED DURING THIS ADMISSION: Include an upper GI endoscopy which showed a normal esophagus, multiple gastric polyps, and a normal examined duodenum. Clostridium difficile was checked and it was negative. HOSPITAL COURSE: After the patient was admitted and seen by Gastroenterology, she underwent the above described endoscopy and recovered well from that and was placed back on a clear liquid diet. She was given antiemetics and also antidiarrheals and had some symptomatic improvement. She was given some electrolyte replacement during this admission as well. With her symptomatic improvement, her diet was able to be slowly advanced, which she tolerated well, and it was thought that this GI symptomatology was likely related to her recent chemotherapy initiation, but she was felt safe for discharge home on 07/01/2016, to follow up with [facility] on 07/06/2016. She did have blood cultures that were negative. She did have stool studies that have been negative and she did have a vitamin D that was quite low at 17. Questions were answered at bedside with the patient, and she was discharged home with the above medication regimen and followup plan. Discharge Summary [address] [address] NAME: JODI JAMESON : 69 STATUS : DIS IN PAT#: [id number] AGE: 50 ADM/REG DATE : 06/27/16 MR#: [id number] REPORT SERV DATE: 07/02/16 DICTATED BY: DENY CARRIZALES DATE: 07/01/16 REPORT STATUS : Draft TRANSCRIBED BY: DENEEN DATE: 07/01/16 IVON/DENEEN Deny Carrizales NP / [id number] CC: Nory Tao M.D.
--- NOTE | ~2016-06-27 | EGD ---
EGD REPORT [facility] [address] [address] NAME: JODI JAMESON : 69 STATUS : ADM IN PAT#: [id number] AGE: 50 ADM/REG DATE : 06/27/16 MR#: [id number] REPORT SERV DATE: 06/28/16 DICTATED BY: STEFFANY DEGROOT DATE: 06/28/16 REPORT STATUS : Draft TRANSCRIBED BY: [employer] DATE: 06/28/16 Endoscopy Center Patient Name: Jodi Jameson Date of : 1965 Attending MD: STEFFANY DEGROOT, Procedure Date No Time: 06/28/2016 Procedure: Upper GI endoscopy Indications: Nausea with vomiting Referring MD: Braulio Rene III, MD Medicines: Monitored Anesthesia Care Complications: No immediate complications. Estimated blood loss: None. Procedure: Pre-Anesthesia Assessment: - ASA Grade Assessment: III - A patient with severe systemic disease. After obtaining informed consent, the endoscope was passed under direct vision. Throughout the procedure, the patient's blood pressure, pulse, and oxygen saturations were monitored continuously. The GIF [id number] was introduced through the mouth, and advanced to the second part of duodenum. The upper GI endoscopy was accomplished without difficulty. The patient tolerated the procedure well. The upper GI endoscopy was accomplished without difficulty. The patient tolerated the procedure well. Findings: The esophagus was normal. Multiple diminutive sessile polyps with no bleeding and no stigmata of recent bleeding were found in the gastric body. The cardia and gastric fundus were normal on retroflexion. The exam of the stomach was otherwise normal. The examined duodenum was normal. Impression: - Normal esophagus. - Multiple gastric polyps. - Normal examined duodenum. Recommendation: - Clear liquid diet. - Continue present medications. - Observe for now. If symptoms persist may need colonoscopy but suspect symptoms self limited. Procedure Code(s): --- Professional --- 82737, Esophagogastroduodenoscopy, flexible, transoral; diagnostic, including collection of specimen(s) by EGD REPORT [facility] [address] [place] [address] [place] [address] NAME: JODI JAMESON : 69 STATUS : ADM IN [facility]#: [id number] AGE: 50 ADM/REG DATE : 06/27/16 MR#: [id number] REPORT SERV DATE: 06/28/16 DICTATED BY: STEFFANY DEGROOT DATE: 06/28/16 REPORT STATUS : Draft TRANSCRIBED BY: [employer] DATE: 06/28/16 brushing or washing, when performed (separate procedure) Diagnosis Code(s): --- Professional --- K31.7, Polyp of stomach and duodenum R11.2, Nausea with vomiting, unspecified CPT copyright 2013 [employer]. All rights reserved. The codes documented in this report are preliminary and upon html developer review may be revised to meet current compliance requirements. STEFFANY DEGROOT, 06/28/2016 10:00 AM Number of Addenda: 0 Note Initiated On: 06/28/2016 9:44 AM Scope Withdrawal Time 0 hours 0 minutes 0 seconds [address] [facility] [place] [address]
[2016-06-27 09:59] LABS: BASOPHILS 0.3 %; BASOPHILS ABSOLUTE 0.03 10/3/uL (0.0-0.16); EOSINOPHILS 0.8 %; EOSINOPHILS ABSOLUTE 0.08 10/3/uL (0.0-0.53); HEMOGLOBIN 9.6 g/dL (12.0-16.0); LYMPHOCYTES ABSOLUTE 0.73 10/3/uL (0.67-4.30); MEAN CORPUS HGB CONC 33.2 g/dL (32.0-36.0); MEAN CORPUSCULAR HEMOGLOB 29.9 pg (26.0-34.0); MEAN PLATELET VOLUME 9.8 fL (9.2-13.0); MONOCYTES ABSOLUTE 0.63 10/3/uL (0.21-1.20); NEUTROPHILS 84.9 %; NEUTROPHILS ABSOLUTE 8.92 10/3/uL (2.02-8.40); RBC DISTRIBUTION WIDTH 15.8 % (12.0-16.0); RED CELL COUNT 3.21 10/6/uL (4.0-5.6)
[2016-06-27 10:03] LABS: ER CBC TAT 0 Hrs 08 Mins; HEMATOCRIT 28.9 % (36.0-48.0); PLATELET COUNT 224 10/3/uL (150-400); WHITE BLOOD CELLS 10.5 10/3/uL (4.5-10.5)
[2016-06-27 10:04] LABS: MANUAL DIFF NO %
[2016-06-27 10:15] LABS: A/G RATIO 0.9 (0.7-1.9); ALBUMIN 2.9 G/DL (3.5-5.0); BUN (BLOOD UREA NITROGEN) 14 MG/DL (6-23); CALCIUM, SERUM 7.6 MG/DL (8.5-10.4); CHLORIDE, SERUM 106 MMOL/L (96-112); CO2 (CARBON DIOXIDE) 27 MMOL/L (24-34); CREATININE 0.54 MG/DL (0.55-1.02); GFR AFRICAN AMERICAN 129 ML/MIN (>=60); GFR NON AFRICAN AMERICAN 112 ML/MIN (>=60); GLOBULIN 3.4 G/DL (2.5-4.1); GLUCOSE, SERUM 116 MG/DL (60-99); SGOT(AST) 16 U/L (5-40); SGPT(ALT) 13 U/L (5-65); SODIUM, SERUM 142 MMOL/L (135-148); TOTAL BILIRUBIN 0.8 MG/DL (0-1.2); TOTAL PROTEIN 6.3 G/DL (6.0-8.5)
[2016-06-27 10:18] LABS: ALKALINE PHOSPHATASE 95 U/L (45-117); POTASSIUM, SERUM 3.4 MMOL/L (3.5-5.3)
[2016-06-27 12:11] LABS: ASCORBIC ACID (UR NOT ORDER) 40 (NEG); BILIRUBIN, URINE NEGATIVE (NEG); ER URINALYSIS TAT 0 Hrs 09 Mins; KETONE, URINE 80 MG/DL (NEG); LEUKOCYTE ESTERASE(NOT OR NEG (NEG); NITRITE (URINE) NEG (NEG); WBC (NOT ORDERED) (RFLEX) 1 (0-5)
[2016-06-27] MEDS ORDERED: HALF81 PO (14:26)
[2016-06-27] MEDS ORDERED: IMOD PO (14:26)
[2016-06-27] MEDS ORDERED: XELODA PO ×2 (14:31→14:32)
[2016-06-27] MEDS ORDERED: ZYRTEC ALLGY10 MG PO (14:32)
[2016-06-27] MEDS ORDERED: PEPCID40 MG PO (14:33)
[2016-06-27] MEDS ORDERED: XGEVA120 MG/1.7 SC (14:33)
[2016-06-27] MEDS ORDERED: L20 PO (14:34)
[2016-06-27] MEDS ORDERED: MELATONIN5 M1 PO (14:34)
[2016-06-27] MEDS ORDERED: NORCO1 TA1 PO (14:34)
[2016-06-27] MEDS ORDERED: PROZ10 PO (14:34)
[2016-06-27] MEDS ORDERED: DULERA 200 MCG/13 GM INH (14:35)
[2016-06-27] MEDS ORDERED: PROTONIX PO (14:38)
[2016-06-27] MEDS ORDERED: ZOFRAN4 PO (14:38)
[2016-06-27] MEDS ORDERED: KLOR-CON M1010 MEQ PO (14:39)
[2016-06-27] MEDS ORDERED: GEMZAR IV (14:43)
[2016-06-27] MEDS ORDERED: 5FU IV (14:44)
[2016-06-27] MEDS ORDERED: IXEMPRA IV (14:45)
[2016-06-27] MEDS ORDERED: OXYCON10 PO (14:45)
[2016-06-28 05:53] LABS: HEMATOCRIT 27.1 % (36.0-48.0); HEMOGLOBIN 8.8 g/dL (12.0-16.0); MEAN CORPUS HGB CONC 32.5 g/dL (32.0-36.0); MEAN CORPUSCULAR HEMOGLOB 30.3 pg (26.0-34.0); MEAN PLATELET VOLUME 9.3 fL (9.2-13.0); PLATELET COUNT 214 10/3/uL (150-400); RBC DISTRIBUTION WIDTH 16.3 % (12.0-16.0); WHITE BLOOD CELLS 11.7 10/3/uL (4.5-10.5)
[2016-06-28 06:00] LABS: MANUAL DIFF YES %; MEAN CORPUSCULAR VOLUME 93.4 fL (80-100)
[2016-06-28 06:19] LABS: BUN (BLOOD UREA NITROGEN) 12 MG/DL (6-23); CHLORIDE, SERUM 111 MMOL/L (96-112); CO2 (CARBON DIOXIDE) 23 MMOL/L (24-34); GFR AFRICAN AMERICAN 143 ML/MIN (>=60); GFR NON AFRICAN AMERICAN 123 ML/MIN (>=60); GLUCOSE, SERUM 119 MG/DL (60-99); POTASSIUM, SERUM 3.6 MMOL/L (3.5-5.3); SODIUM, SERUM 144 MMOL/L (135-148)
[2016-06-28 06:29] LABS: CALCIUM, SERUM 6.6 MG/DL (8.5-10.4)
[2016-06-28 07:10] LABS: BAND NEUTROPHILS 10 %; IMMATURE GRANS ABSOLUTE (CALC) 0.47 10/3/uL (0.0-0.11); LYMPHOCYTES 12 %; METAMYELOCYTES 3 %; MONOCYTES 3 %; MONOCYTES ABSOLUTE (CALC) 0.35 10/3/uL (0.21-1.20); MYELOCYTES 1 %; NEUTROPHILS ABSOLUTE (CALC) 9.48 10/3/uL (2.02-8.40); PLATELET ESTIMATE ADQ (ADEQUATE); SEGMENTED NEUTROPHIL (0) 71 %; TOTAL NUCLEATED CELLS 100
[2016-06-28 07:11] LABS: POLYCHROMASIA 1+ (2-5/OIF) (0-1/OIF); TOXIC GRANULATION 1+
[2016-06-28 09:39] LABS: INTERNATIONAL NORMAL RATI 1.2 UNITS (-); PARTIAL THROMBO TIME 25.8 SEC (22.5-37.2); PROTIME (NOT ORD) 15.5 SEC (12.0-14.5)
[2016-06-29 05:30] LABS: HEMATOCRIT 26.2 % (36.0-48.0); HEMOGLOBIN 8.7 g/dL (12.0-16.0); MEAN CORPUS HGB CONC 33.2 g/dL (32.0-36.0); MEAN CORPUSCULAR HEMOGLOB 30.7 pg (26.0-34.0); MEAN CORPUSCULAR VOLUME 92.6 fL (80-100); MEAN PLATELET VOLUME 9.4 fL (9.2-13.0); NUCLEATED RED BLOOD CELLS 2.9 /100WBC (0-0); PLATELET COUNT 249 10/3/uL (150-400); RBC DISTRIBUTION WIDTH 17.6 % (12.0-16.0); RED CELL COUNT 2.83 10/6/uL (4.0-5.6); WHITE BLOOD CELLS 9.4 10/3/uL (4.5-10.5)
[2016-06-29 05:31] LABS: MANUAL DIFF YES %
[2016-06-29 05:38] LABS: BUN (BLOOD UREA NITROGEN) 9 MG/DL (6-23); CHLORIDE, SERUM 107 MMOL/L (96-112); CO2 (CARBON DIOXIDE) 25 MMOL/L (24-34); CREATININE 0.38 MG/DL (0.55-1.02); GFR AFRICAN AMERICAN 145 ML/MIN (>=60); GFR NON AFRICAN AMERICAN 125 ML/MIN (>=60); GLUCOSE, SERUM 111 MG/DL (60-99); POTASSIUM, SERUM 3.5 MMOL/L (3.5-5.3); SODIUM, SERUM 141 MMOL/L (135-148)
[2016-06-29 05:43] LABS: CALCIUM, SERUM 6.6 MG/DL (8.5-10.4)
[2016-06-29 05:53] LABS: ANISOCYTOSIS 1+ (5-10/OIF) (0-5/OIF); BAND NEUTROPHILS 12 %; EOSINOPHILS 1 %; EOSINOPHILS ABSOLUTE (CALC) 0.09 10/3/uL (0.0-0.53); IMMATURE GRANS ABSOLUTE (CALC) 0.19 10/3/uL (0.0-0.11); LYMPHOCYTES 3 %; LYMPHOCYTES ABSOLUTE (CALC) 0.28 10/3/uL (0.67-4.30); METAMYELOCYTES 2 %; MONOCYTES 9 %; MONOCYTES ABSOLUTE (CALC) 0.85 10/3/uL (0.21-1.20); NEUTROPHILS ABSOLUTE (CALC) 7.99 10/3/uL (2.02-8.40); PLATELET ESTIMATE ADQ (ADEQUATE); SEGMENTED NEUTROPHIL (0) 73 %; TOTAL NUCLEATED CELLS 100
[2016-06-30 04:20] LABS: BUN (BLOOD UREA NITROGEN) 8 MG/DL (6-23); CHLORIDE, SERUM 103 MMOL/L (96-112); CO2 (CARBON DIOXIDE) 26 MMOL/L (24-34); CREATININE 0.46 MG/DL (0.55-1.02); GFR AFRICAN AMERICAN 136 ML/MIN (>=60); GFR NON AFRICAN AMERICAN 118 ML/MIN (>=60); GLUCOSE, SERUM 104 MG/DL (60-99); POTASSIUM, SERUM 3.5 MMOL/L (3.5-5.3); SODIUM, SERUM 138 MMOL/L (135-148)
[2016-06-30 04:28] LABS: CALCIUM, SERUM 6.5 MG/DL (8.5-10.4); PHOSPHORUS, SERUM 0.8 MG/DL (2.5-4.5)
[2016-06-30 04:35] LABS: HEMATOCRIT 26.4 % (36.0-48.0); HEMOGLOBIN 8.6 g/dL (12.0-16.0); MEAN CORPUS HGB CONC 32.6 g/dL (32.0-36.0); MEAN CORPUSCULAR HEMOGLOB 30.4 pg (26.0-34.0); MEAN CORPUSCULAR VOLUME 93.3 fL (80-100); MEAN PLATELET VOLUME 9.1 fL (9.2-13.0); NUCLEATED RED BLOOD CELLS 2.3 /100WBC (0-0); PLATELET COUNT 270 10/3/uL (150-400); RBC DISTRIBUTION WIDTH 18.4 % (12.0-16.0); RED CELL COUNT 2.83 10/6/uL (4.0-5.6); WHITE BLOOD CELLS 9.6 10/3/uL (4.5-10.5)
[2016-06-30 04:39] LABS: MANUAL DIFF YES %
[2016-06-30 07:37] LABS: BAND NEUTROPHILS 25 %; BASOPHILS 2 %; BASOPHILS ABSOLUTE (CALC) 0.19 10/3/uL (0.0-0.16); LYMPHOCYTES 5 %; LYMPHOCYTES ABSOLUTE (CALC) 0.48 10/3/uL (0.67-4.30); MONOCYTES 7 %; MONOCYTES ABSOLUTE (CALC) 0.67 10/3/uL (0.21-1.20); NEUTROPHILS ABSOLUTE (CALC) 8.26 10/3/uL (2.02-8.40); SEGMENTED NEUTROPHIL (0) 61 %; TOTAL NUCLEATED CELLS 100
[2016-06-30 07:38] LABS: ANISOCYTOSIS 1+ (5-10/OIF) (0-5/OIF); MACROCYTES 1+ (5-10/OIF) (0-5/OIF); PLATELET ESTIMATE ADQ (ADEQUATE); POLYCHROMASIA 1+ (2-5/OIF) (0-1/OIF)
[2016-07-01] MEDS ORDERED: VITAMIN D1000 UNI1 PO (15:09)
[2016-07-01] MEDS ORDERED: FLORASTOR250 MG PO (15:10)
[2016-08-11] MEDS ORDERED: XELODA PO (16:06)
[2016-08-11] MEDS ORDERED: PROTONIX PO (16:11)
== END 2016-07-01 15:44 | disposition home or self-care (01) | DRG 598 ==
LOC: ER 09:44 → 4EA 14:57
PROVIDERS: Emergency Medicine; Internal Medicine; Internal Medicine Gastroenterology; Nurse Practitioner Family
PROC: 0DJ08ZZ Inspection of Upper Intestinal Tract, Via Natural or Artificial Opening Endoscopic (ICD-10-PCS; principal; 2016-06-27)
DX: C50.919 Malignant neoplasm of unspecified site of unspecified female breast (principal); K92.1 Melena; J96.10 Chronic respiratory failure, unspecified whether with hypoxia or hypercapnia; J91.0 Malignant pleural effusion; J44.9 Chronic obstructive pulmonary disease, unspecified; E11.9 Type 2 diabetes mellitus without complications; Z86.718 Personal history of other venous thrombosis and embolism; Z79.01 Long term (current) use of anticoagulants; K21.9 Gastro-esophageal reflux disease without esophagitis; G47.33 Obstructive sleep apnea (adult) (pediatric); G25.81 Restless legs syndrome; E87.6 Hypokalemia; E83.51 Hypocalcemia
CPT/HCPCS: 80048; 80053; 81001; 82306; 82330; 83735; 84100; 84132; 85025; 85049; 85610; 85730; 87040; 87328; 87329; 87493; 87493-59; 89055; 94640; 99285; A9270-GY; C1729; J0610; J1170; J1200; J2270; J2405; J2550; J2765

== ENCOUNTER 2016-08-12 08:49 | Day surgery (SDC) | payer OTHER ==
--- NOTE | ~2016-08-12 | OP ---
Record Of Operation [facility] [address] [place]. [address] NAME: JODI JAMESON : 69 STATUS : [facility]#: [id number] AGE: 51 ADM/REG DATE : 08/12/16 MR#: [id number] REPORT SERV DATE: 08/13/16 DICTATED BY: RITA PARNELL DATE: 08/12/16 REPORT STATUS : Draft TRANSCRIBED BY: MODL DATE: 08/12/16 DATE OF PROCEDURE: 08/12/2016 PREOPERATIVE DIAGNOSIS: Left breast cancer with stage IV metastatic disease. POSTOPERATIVE DIAGNOSIS: Left breast cancer with stage IV metastatic disease. PROCEDURES: 1. Placement of a right internal jugular venous port. 2. Intraoperative ultrasound for vein access. 3. Intraoperative fluoroscopy with interpretation. INDICATION FOR THE PROCEDURE: Mrs. Jameson is a 51-year-old female with a stage IV left breast cancer who has been treated now for many years. She is currently on a new chemotherapy regimen, which will require a Port-A-Cath access and we are placing a Port-A-Cath today. The patient is a patient of Dr. Louie Jones, he is out of town, and we will be placing the port for him today. OPERATIVE FINDINGS: After appropriate consent was noted in the chart, the patient was taken to the operating room in supine position. She was placed under monitored anesthesia without complication. The bilateral arms were tucked, a shoulder roll was placed, and an ultrasound utilized to visualize the right internal jugular vein. The vein was in its normal anatomic position and patent. The patient's bilateral neck and chest wall were prepped and draped in the sterile fashion. The draped ultrasound probe was then utilized to revisualize the right internal jugular vein. Local anesthetic was infiltrated the skin and soft tissue overlying the vein and the vein was then accessed with a single pass with a Seldinger needle. Nonpulsatile venous appearing blood was noted in the syringe and the syringe was removed and the wire passed with ease. The wire was noted to be in good position in the vena cava by fluoroscopy. The needle was removed from the vein and the wire left in the vein and secured to the drapes for later use. The local anesthetic was utilized to anesthetize the prior scar in the right upper chest wall. An incision made with a #15 blade through the scar and sharp dissection carried down to the port pocket. The port pocket was re-created with Bovie cauterization. Stay sutures were placed at the 3 o'clock and 9 o'clock position of Prolene. The sutures were secured for later use. An 11 blade was utilized to lengthen the vein access site in the neck and the subcutaneous tunnel was anesthetized and created using a tunneling device. The catheter was pulled through without issue. The dilator with tear- away sheath were placed over the wire with constant movement of the wire. The vein was dilated with no resistance. The wire and dilator were removed from the sheath and the catheter passed through the sheath without issue. The sheath was torn away leaving the catheter in the vein. The catheter was pulled back to the atriocaval junction using constant fluoroscopy. It was then clipped for length of the port pocket. The catheter was secured to the port with the securing device. The port noted to aspirate and flush with ease. The port was packed with heparinized saline. The port was secured into the port pocket with two stay sutures and the wound copiously irrigated with saline. The incision was closed in two layers of Monocryl, and the small yana in the neck was reapproximated with a single 4-0 Monocryl in a buried fashion. The skin was cleansed and dried. Dermabond Record Of [address] [address] NAME: JODI JAMESON : 69 STATUS : [facility] PAT#: [id number] AGE: 51 ADM/REG DATE : 08/12/16 MR#: [id number] REPORT SERV DATE: 08/13/16 DICTATED BY: RITA PARNELL DATE: 08/12/16 REPORT STATUS : Draft TRANSCRIBED BY: DENEEN DATE: 08/12/16 overlaid. The patient was awoken from anesthesia without complication, taken to the PACU in stable condition for recovery. All counts were correct at the end of the case. ESTIMATED BLOOD LOSS: 20 mL. COMPLICATIONS: None. SPECIMENS: None. RO/DENEEN Rita Parnell MD / [id number] CC: MD Ariel Austin M.D. [facility] Martin Pritchett M.D. Nory Madrigal III, MD
[~2016-08-12 08:49] MED LIST changes: +DULERA 200 MCG/13 GM INH; +FLORASTOR250 MG PO; +HALF81 PO; +IMOD PO; +IXEMPRA IV; +KLOR-CON M1010 MEQ PO; +VITAMIN D1000 UNI1 PO
[2016-08-12 09:40] LABS: MEAN CORPUS HGB CONC 33.5 g/dL (32.0-36.0); MEAN CORPUSCULAR HEMOGLOB 32.2 pg (26.0-34.0); MEAN PLATELET VOLUME 10.7 fL (9.2-13.0); RED CELL COUNT 3.26 10/6/uL (4.0-5.6)
[2016-08-12 09:41] LABS: HEMATOCRIT 31.3 % (36.0-48.0); HEMOGLOBIN 10.5 g/dL (12.0-16.0); MANUAL DIFF YES %; PLATELET COUNT 95 10/3/uL (150-400); WHITE BLOOD CELLS 1.7 10/3/uL (4.5-10.5)
[2016-08-12 09:52] LABS: CHLORIDE, SERUM 109 MMOL/L (96-112); CO2 (CARBON DIOXIDE) 27 MMOL/L (24-34); GFR AFRICAN AMERICAN 124 ML/MIN (>=60); GFR NON AFRICAN AMERICAN 107 ML/MIN (>=60); GLUCOSE, SERUM 88 MG/DL (60-99); SODIUM, SERUM 140 MMOL/L (135-148)
[2016-08-12 09:55] LABS: BUN (BLOOD UREA NITROGEN) 18 MG/DL (6-23); CALCIUM, SERUM 8.4 MG/DL (8.5-10.4); POTASSIUM, SERUM 4.6 MMOL/L (3.5-5.3)
[2016-08-12 10:21] LABS: BAND NEUTROPHILS 4 %; BASOPHILS 4 %; BASOPHILS ABSOLUTE (CALC) 0.07 10/3/uL (0.0-0.16); EOSINOPHILS 4 %; EOSINOPHILS ABSOLUTE (CALC) 0.07 10/3/uL (0.0-0.53); LYMPHOCYTES 34 %; LYMPHOCYTES ABSOLUTE (CALC) 0.58 10/3/uL (0.67-4.30); MONOCYTES 2 %; MONOCYTES ABSOLUTE (CALC) 0.03 10/3/uL (0.21-1.20); NEUTROPHILS ABSOLUTE (CALC) 0.95 10/3/uL (2.02-8.40); PLATELET ESTIMATE DEC (ADEQUATE); SEGMENTED NEUTROPHIL (0) 52 %; TOTAL NUCLEATED CELLS 100
[2016-08-12 10:22] LABS: ANISOCYTOSIS 1+ (5-10/OIF) (0-5/OIF); MACROCYTES 1+ (5-10/OIF) (0-5/OIF)
== END 2016-08-12 13:31 | disposition home or self-care (01) ==
LOC: SDC 08:49
PROVIDERS: Surgery Surgical Oncology
PROC: B513YZA Fluoroscopy of Right Jugular Veins using Other Contrast, Guidance (ICD-10-PCS; 2016-08-12)
PROC: B543ZZA Ultrasonography of Right Jugular Veins, Guidance (ICD-10-PCS; 2016-08-12)
PROC: 05HM33Z Insertion of Infusion Device into Right Internal Jugular Vein, Percutaneous Approach (ICD-10-PCS; principal; 2016-08-12 09:45)
DX: C50.912 Malignant neoplasm of unspecified site of left female breast (principal); G47.30 Sleep apnea, unspecified; D64.9 Anemia, unspecified; Z86.711 Personal history of pulmonary embolism; Z86.718 Personal history of other venous thrombosis and embolism; Z88.5 Allergy status to narcotic agent; Z90.13 Acquired absence of bilateral breasts and nipples; Z90.710 Acquired absence of both cervix and uterus; Z98.890 Other specified postprocedural states
CPT/HCPCS: 71010; 77001; 80048; 85025; 93005; A9270-GY; C1751; J0690; J2250; J2370; J2405; J3010